=== PATIENT | female | born 1970 | race Caucasian/White ===

== ENCOUNTER 2017-12-27 06:40 | Emergency (ER) | payer BC ==
[~2017-12-27] VITALS: Ht 160 cm; Wt 59.9 kg
[2017-12-27 07:52] LABS: Urine Bacteria NONE SEEN /hpf (None Seen); Urine Blood Negative /uL (Negative); Urine Mucus FEW (None Seen); Urine Specific Gravity 1.022 (1.001-1.035); Urine WBC 3 /hpf (0 - 5)
[2017-12-27 08:07] LABS: Basophils # (auto) 0 uL; Basophils % (auto) 0.4 % (0.0-2.0); Eosinophils # (auto) 0.1 uL; Eosinophils % (auto) 0.7 % (0.0-7.0); Hemoglobin 14.1 g/dL (12.2-16.2); Mean Corpuscular Hemoglobin 29.4 pg (28.0-32.0); Mean Corpuscular Hgb Conc. 33.7 g/dL (32.0-36.0); Mean Corpuscular Volume 87.3 fL (80.0-100.0); Monocytes # (auto) 0.4 uL; Monocytes % (auto) 4.1 % (0.0-12.0); Neutrophils # (auto) 7.1 uL; Neutrophils % (auto) 82.8 % (37.0-80.0); Nucleated Red Blood Cells % 0.1 %; Platelet Count (auto) 217 10^3/uL (140-450); Red Blood Cells 4.81 10^6/uL (4.0-5.20); White Blood Cell 8.6 10^3/uL (4.4-10.8)
[2017-12-27 08:24] LABS: Albumin 4.1 g/dL (3.4-5.0); BUN/Creatinine Ratio 14.9; Bilirubin, Total 0.4 mg/dL (0.2-1.0); Calcium 8.6 mg/dL (8.5-10.1); Potassium 4.2 mmol/L (3.5-5.1); Total Protein 7.5 g/dL (6.4-8.2)
[2017-12-27 09:22] VITALS: BP 111/70
[2017-12-27] MEDS ORDERED: KETOROLAC TROMETH 60MG/2ML VIAL IM ONE (10:30)
== END 2017-12-27 11:09 | disposition home or self-care (01) ==
LOC: ER 06:41
DX: K57.30 Diverticulosis of large intestine without perforation or abscess without bleeding (principal); F17.210 Nicotine dependence, cigarettes, uncomplicated
CPT/HCPCS: 36415; 74176; 80053; 81001; 85025; 96372; 99285; J1885

== ENCOUNTER → 2017-12-31 | Outpatient (CLI) | payer BC ==
[2017-12-31 09:03] LABS: Basophils # (auto) 0 uL; Basophils % (auto) 0.8 % (0.0-2.0); Eosinophils # (auto) 0.1 uL; Hematocrit 42.5 % (36.0-46.0); Hemoglobin 14.1 g/dL (12.2-16.2); Lymphocytes # (auto) 1.8 uL; Lymphocytes % (auto) 31.9 % (10.0-50.0); Mean Corpuscular Hemoglobin 29.3 pg (28.0-32.0); Mean Corpuscular Hgb Conc. 33.1 g/dL (32.0-36.0); Mean Corpuscular Volume 88.5 fL (80.0-100.0); Monocytes # (auto) 0.3 uL; Monocytes % (auto) 5.7 % (0.0-12.0); Neutrophils # (auto) 3.4 uL; Neutrophils % (auto) 59.6 % (37.0-80.0); Platelet Count (auto) 209 10^3/uL (140-450); Red Cell Distribution Width 13.2 % (11.8-14.3); White Blood Cell 5.7 10^3/uL (4.4-10.8)
[2017-12-31 09:36] LABS: Albumin 3.7 g/dL (3.4-5.0); BUN/Creatinine Ratio 15.2; Bilirubin, Total 0.4 mg/dL (0.2-1.0); Calcium 8.6 mg/dL (8.5-10.1); Potassium 4.6 mmol/L (3.5-5.1)
== END | disposition home or self-care (01) ==
LOC: LAB 07:56
PROVIDERS: ATTEND Physician Assistant
DX: Z00.01 Encounter for general adult medical examination with abnormal findings (principal); N28.1 Cyst of kidney, acquired; R10.84 Generalized abdominal pain; N83.209 Unspecified ovarian cyst, unspecified side; F17.210 Nicotine dependence, cigarettes, uncomplicated
CPT/HCPCS: 36415; 80053; 80061; 85025

== ENCOUNTER 2018-10-23 06:02 | Inpatient (IN) | payer BC ==
[2018-10-21 11:23] LABS: Basophils # (auto) 0 uL; Basophils % (auto) 0.8 % (0.0-2.0); Eosinophils # (auto) 0.1 uL; Eosinophils % (auto) 1.4 % (0.0-7.0); Hematocrit 43.4 % (36.0-46.0); Hemoglobin 14.4 g/dL (12.2-16.2); Lymphocytes # (auto) 1.3 uL; Lymphocytes % (auto) 25.7 % (10.0-50.0); Mean Corpuscular Hemoglobin 29.8 pg (28.0-32.0); Mean Corpuscular Hgb Conc. 33.3 g/dL (32.0-36.0); Mean Corpuscular Volume 89.5 fL (80.0-100.0); Monocytes # (auto) 0.3 uL; Monocytes % (auto) 4.9 % (0.0-12.0); Neutrophils # (auto) 3.5 uL; Neutrophils % (auto) 67.2 % (37.0-80.0); Nucleated Red Blood Cells % 0.1 %; Platelet Count (auto) 185 10^3/uL (140-450); Red Blood Cells 4.85 10^6/uL (4.0-5.20); Red Cell Distribution Width 12.8 % (11.8-14.3); White Blood Cell 5.2 10^3/uL (4.4-10.8)
[2018-10-21 11:31] LABS: Urine Bacteria NONE SEEN /hpf (None Seen); Urine Blood Negative /uL (Negative); Urine Specific Gravity 1.016 (1.001-1.035); Urine WBC 1 /hpf (0 - 5)
[2018-10-21 11:35] LABS: INR 0.93 (0.9-1.15); Partial Thromboplastin Time 26.1 sec (23.78-33.04)
[2018-10-21 11:41] LABS: Calcium 8.3 mg/dL (8.5-10.1); Potassium 4.3 mmol/L (3.5-5.1)
[2018-10-21 11:47] LABS: BUN/Creatinine Ratio 14.6; Bilirubin, Total 0.4 mg/dL (0.2-1.0); Total Protein 7.6 g/dL (6.4-8.2)
[~2018-10-23] VITALS: Ht 160 cm; Wt 65.3 kg
[~2018-10-23 06:02] MED LIST: BUPR100T14 PO
[2018-10-23] MEDS ORDERED: DOXAPRAM HCL 20 MG/ML 20ML VIAL INJ IV ONE (06:53)
[2018-10-23] MEDS ORDERED: SUCCINYLCHOLINE CHLORIDE 20 MG/ML 10ML VIAL IV ONE (06:54)
[2018-10-23] MEDS ORDERED: ceFAZolin 1GM/50ML 50 ML IV ONE (07:04)
[2018-10-23] MEDS ORDERED: ACETAMINOPHEN IV 100 ML IV ONE (07:05)
[2018-10-23] MEDS ORDERED: SODIUM CHLORIDE LOCK 10 ML ONE (07:08)
[2018-10-23] MEDS ORDERED: fentaNYL CITRATE 100 MCG/2 ML VL ONE (07:08)
[2018-10-23] MEDS ORDERED: ONDANSETRON HCL 4 MG/2 ML VIAL ONE (07:08)
[2018-10-23] MEDS ORDERED: PROPOFOL 10 MG/ML 20 ML IV ONE (07:08)
[2018-10-23] MEDS ORDERED: MIDAZOLAM HCL 1MG/1ML-2 ML VIAL ONE (07:08)
[2018-10-23] MEDS ORDERED: HYDROmorphone HCL 2 MG/ML VL ONE (07:08)
[2018-10-23] MEDS ORDERED: fentaNYL CITRATE 10 ML ONE (07:08)
[2018-10-23] MEDS ORDERED: ROCURONIUM 10MG/ML 10ML VIAL IV ONE (07:08)
[2018-10-23] MEDS ORDERED: KETOROLAC TROMETH 60MG/2ML VIAL IM ONE (07:58)
[2018-10-23] MEDS ORDERED: GLYCOPYRROLATE 0.2 MG/ML 1ML VIAL ONE (07:58)
[2018-10-23] MEDS ORDERED: NEOSTIGMINE 1 MG/ML INJ (10mg/10ML VIAL) ONE (07:58)
[2018-10-23] MEDS ORDERED: METOCLOPRAMIDE HCL 5MG/ml INJ 2ml VIAL IV ONE (08:15)
[2018-10-23] MEDS ORDERED: KETOROLAC TROMETH 30 MG/ML 1ML VIAL IV ONE (08:15)
[2018-10-23] MEDS ORDERED: ONDANSETRON HCL 4 MG/2 ML VIAL IV PRN (09:15)
[2018-10-23] MEDS: HYDROmorphone HCL 2 MG/ML VL IV PRN ×5 (09:35→17:49)
[2018-10-23] MEDS: ceFAZolin 1GM/50ML 50 ML IV SCH ×2 (15:54→23:59)
[2018-10-23 16:10] VITALS: BP 109/69
[2018-10-23 17:04] VITALS: BP 109/69
[2018-10-23] MEDS: LACTATED RINGER'S 1,000 ML IV SCH ×3 (17:05→23:00)
[2018-10-23] MEDS: KETOROLAC TROMETH 30 MG/ML 1ML VIAL IV SCH ×3 (18:00→23:59)
[2018-10-23] MEDS: buPROPion HCL 100 MG TAB PO SCH (21:06)
[2018-10-23 21:12] VITALS: BP 107/61
[2018-10-24] MEDS: HYDROmorphone HCL 2 MG/ML VL IV PRN (04:42)
[2018-10-24 05:09] VITALS: BP 98/62
[2018-10-24 05:54] LABS: Basophils # (auto) 0 uL; Basophils % (auto) 0.4 % (0.0-2.0); Eosinophils # (auto) 0 uL; Eosinophils % (auto) 0.4 % (0.0-7.0); Hematocrit 35.7 % (36.0-46.0); Hemoglobin 12.1 g/dL (12.2-16.2); Lymphocytes # (auto) 1.6 uL; Lymphocytes % (auto) 16.7 % (10.0-50.0); Mean Corpuscular Hemoglobin 29.9 pg (28.0-32.0); Mean Corpuscular Hgb Conc. 33.7 g/dL (32.0-36.0); Mean Corpuscular Volume 88.7 fL (80.0-100.0); Monocytes # (auto) 0.5 uL; Monocytes % (auto) 5.7 % (0.0-12.0); Neutrophils # (auto) 7.3 uL; Neutrophils % (auto) 76.8 % (37.0-80.0); Platelet Count (auto) 167 10^3/uL (140-450); Red Blood Cells 4.03 10^6/uL (4.0-5.20); Red Cell Distribution Width 12.4 % (11.8-14.3); White Blood Cell 9.5 10^3/uL (4.4-10.8)
[2018-10-24 06:05] LABS: Calcium 7.8 mg/dL (8.5-10.1); Potassium 3.7 mmol/L (3.5-5.1)
[2018-10-24 06:11] LABS: Bilirubin, Total 0.6 mg/dL (0.2-1.0); Total Protein 5.8 g/dL (6.4-8.2)
[2018-10-24] MEDS: KETOROLAC TROMETH 30 MG/ML 1ML VIAL IV SCH ×4 (06:12→23:39)
[2018-10-24] MEDS: buPROPion HCL 100 MG TAB PO SCH ×2 (06:12→18:28)
[2018-10-24] MEDS: ceFAZolin 1GM/50ML 50 ML IV SCH (06:12)
--- NOTE | 2018-10-24 07:16 | NUR ---
Shift Note The patient had a pretty good night, tolerated treatments well. She seemed not to sleep much, waking easily when I would come into the room. She tolerated her clear liquid diet well, wants more. I told her when the doctor sees she is tolerating clears well, she may be advanced in her diet. The abdominal dressing remains clean, dry, and intact. The scheduled Toradol had kept her pain around a 5/10 most of the shift. Performed patient teaching with the incentive spirometer. The patient also knows the flores will come out this morning. Will continue to monitor.
[2018-10-24 08:00] VITALS: BP 99/65
--- NOTE | 2018-10-24 08:00 | NUR ---
Opening Shift Note Assumed care of patient, alert and oriented x4. No S/S of distress/SOB. Surgical incision dressing is clean, dry and intact. Iv in right forearm 20 g is patent, dry, and clean running lactated ringers @ 125. Bed in lowest position and call light is within reach.Instructed on POC and to call for assist PRN, will continue to monitor for changes.
[2018-10-24] MEDS ORDERED: LACTATED RINGER'S 1,000 ML IV SCH (08:20)
[2018-10-24] MEDS ORDERED: IBUPROFEN 800 MG TAB PO PRN (08:30)
[2018-10-24] MEDS ORDERED: HYDROcodone-ACET 5/325MG TAB PO PRN ×2 (08:30)
[2018-10-24] MEDS ORDERED: SIMETHICONE 80 MG CHEWABLE TABLET PO PRN (08:30)
[2018-10-24 08:50] VITALS: BP 99/65
--- NOTE | 2018-10-24 09:32 | NUR ---
D/c Hernández Hernández was d/c. Patient had no signs or symptoms of distress.
[2018-10-24] MEDS: DOCUSATE SOD 100 MG CAP PO SCH ×2 (10:51→22:48)
[2018-10-24] MEDS: LACTATED RINGER'S 1,000 ML IV SCH ×3 (10:58→23:40)
[2018-10-24 11:50] VITALS: BP 107/69
--- NOTE | 2018-10-24 11:56 | NUR ---
Patient notes: Patient ambulated to the restroom. gait is stable. No signs of distress. Patient states no flatus. Dressing removed from surgical incision as direct by . Wound well approximated, nery intact, no swelling or redness noted. Minimal bleeding on left side of incision. New dressing was applied abdominal pad with adhesive. Patient ambulated the [facility] with family by there side. no complaint of pain.
--- NOTE | 2018-10-24 12:55 | NUR ---
Patient's notes: Patient is currently eating lunch with family member bedside. patient is tolerating full liquid diet and states no nausea or vomiting. Patient states she has flatus in the last hour and ambulates independently to the restroom. Pain is currently tolerable level of 4. patient is told to call for assistance and call light is within reach.
[2018-10-24 17:08] VITALS: BP 112/58
--- NOTE | 2018-10-24 18:40 | NUR ---
PT NOTES PT RESTING IN BED. VERBALIZED COMFORT. PT REQUESTED FOR A SOFT DIET FOR DINNER. PER MD, ADVANCE DIET TOLERATED.
[2018-10-24 22:00] VITALS: BP 107/61
[2018-10-25 05:00] VITALS: BP 107/67
[2018-10-25] MEDS: buPROPion HCL 100 MG TAB PO SCH ×2 (06:32→19:12)
[2018-10-25] MEDS: KETOROLAC TROMETH 30 MG/ML 1ML VIAL IV SCH ×3 (06:33→17:33)
--- NOTE | 2018-10-25 07:20 | NUR ---
Opening Shift Note Assumed care of patient, awake and alert. No S/S of distress/SOB or pain. Instructed on POC-continue using incentive spirometer for breathing exercises, continue hydration, monitor incision. Patient informed to call for assist PRN, will continue to monitor for changes Q1hr and PRN.
[2018-10-25 08:38] VITALS: BP 115/65
[2018-10-25] MEDS: LACTATED RINGER'S 1,000 ML IV SCH (09:25)
[2018-10-25] MEDS: DOCUSATE SOD 100 MG CAP PO SCH ×2 (10:50→22:22)
[2018-10-25 13:00] VITALS: BP 123/81
[2018-10-25 17:00] VITALS: BP 114/74
--- NOTE | 2018-10-25 19:00 | NUR ---
Closing Note Patient is resting in bed, per patient she had a bowel movement. Call light within reach and bed in lowest position. Care endorsed to night RN.
[2018-10-25 22:00] VITALS: BP 98/49
[2018-10-26] MEDS: KETOROLAC TROMETH 30 MG/ML 1ML VIAL IV SCH ×2 (00:31→06:16)
[2018-10-26 05:00] VITALS: BP 101/63
--- NOTE | 2018-10-26 05:23 | NUR ---
Shift Note The patient had an uneventful night, tolerated treatments well, had no complaints. She was able to sleep most of the night, pain seemed managed at around 4/10. She continues to receive Toradol Q6. Plan is to have her nery removed and possibly discharged later today. Will continue to monitor.
[2018-10-26] MEDS: buPROPion HCL 100 MG TAB PO SCH (06:15)
--- NOTE | 2018-10-26 08:00 | NUR ---
Opening Shift Note Assumed care of patient, awake and alert. No S/S of distress/SOB or pain. Denies needing anything at this time. Stated she is just waiting for Dr. Briggs to remove the nery so she can hopefully go home today. Instructed on POC and to call for assist PRN, will continue to monitor for changes Q1hr and PRN.
[2018-10-26 08:59] VITALS: BP 93/68
[2018-10-26] MEDS: DOCUSATE SOD 100 MG CAP PO SCH (09:05)
[2018-10-26] MEDS ORDERED: CEPH250C PO (11:27)
[2018-10-26] MEDS ORDERED: DOCU-94 PO (11:27)
[2018-10-26] MEDS ORDERED: HYDR-4683 PO (11:27)
--- NOTE | 2018-10-26 13:23 | NUR ---
DISCHARGE REVIEWED DISCHARGE INFORMATION WITH PATIENT. ANSWERED QUESTIONS. REMOVED IV AND ARMBANDS. PATIENT WAS DISCHARGED HOME WITH ALL BELONGINGS. FAMILY PRESENT. MD RUIZ WAS HERE THIS MORNING AND REMOVED HER ABDOMINAL KRISTINE AND COVERED ARE WITH DRESSING. DRESSING CURRENTLY CLEAN, DRY, AND INTACT.
== END 2018-10-26 13:20 | disposition home or self-care (01) | DRG 743 ==
LOC: SUR 06:02 → EAST 16:30
PROVIDERS: ADMIT Specialist; ATTEND Specialist
PROC: 0UT70ZZ Resection of Bilateral Fallopian Tubes, Open Approach (ICD-10-PCS; 2018-10-23)
PROC: 0UT90ZZ Resection of Uterus, Open Approach (ICD-10-PCS; principal; 2018-10-23 07:29)
DX: D25.9 Leiomyoma of uterus, unspecified (principal); F17.210 Nicotine dependence, cigarettes, uncomplicated; G47.00 Insomnia, unspecified; F32.9 Major depressive disorder, single episode, unspecified; G89.29 Other chronic pain; K66.0 Peritoneal adhesions (postprocedural) (postinfection); Z80.49 Family history of malignant neoplasm of other genital organs; Z98.891 History of uterine scar from previous surgery; Z98.51 Tubal ligation status
CPT/HCPCS: 36415; 80053; 81001; 84702; 85025; 85610; 85730; 86850; 86900; 86901; G0378; J0131; J0330; J0690; J1885; J2250; J2405; J2704

== ENCOUNTER → 2019-02-28 | Outpatient (CLI) | payer BC ==
[~2019-02-28] MED LIST changes: +CEPH250C PO; +DOCU-94 PO; +HYDR-4683 PO
[2019-02-28 08:30] LABS: Basophils # (auto) 0 uL; Basophils % (auto) 0.9 % (0.0-2.0); Eosinophils # (auto) 0.1 uL; Eosinophils % (auto) 1.7 % (0.0-7.0); Hematocrit 38.4 % (36.0-46.0); Hemoglobin 12.9 g/dL (12.2-16.2); Lymphocytes # (auto) 1.3 uL; Lymphocytes % (auto) 29.1 % (10.0-50.0); Mean Corpuscular Hemoglobin 29.4 pg (28.0-32.0); Mean Corpuscular Hgb Conc. 33.5 g/dL (32.0-36.0); Mean Corpuscular Volume 87.6 fL (80.0-100.0); Monocytes # (auto) 0.3 uL; Monocytes % (auto) 6.2 % (0.0-12.0); Neutrophils # (auto) 2.8 uL; Neutrophils % (auto) 62.1 % (37.0-80.0); Nucleated Red Blood Cells % 0.1 %; Platelet Count (auto) 181 10^3/uL (140-450); Red Blood Cells 4.38 10^6/uL (4.0-5.20); White Blood Cell 4.5 10^3/uL (4.4-10.8)
[2019-02-28 08:32] LABS: Potassium 4.2 mmol/L (3.5-5.1)
[2019-02-28 08:41] LABS: Albumin 3.7 g/dL (3.4-5.0); Bilirubin, Total 0.6 mg/dL (0.2-1.0); Calcium 8.5 mg/dL (8.5-10.1); Total Protein 6.8 g/dL (6.4-8.2)
== END | disposition home or self-care (01) ==
LOC: LAB 07:31
PROVIDERS: ATTEND Physician Assistant
DX: F41.9 Anxiety disorder, unspecified (principal); G47.00 Insomnia, unspecified; Z20.5 Contact with and (suspected) exposure to viral hepatitis; Z72.0 Tobacco use
CPT/HCPCS: 36415; 80053; 80061; 85025; 87522

== ENCOUNTER 2019-06-29 11:26 | Emergency (ER) | payer BC ==
[~2019-06-29] VITALS: Ht 157.5 cm; Wt 61.2 kg
[~2019-06-29 11:26] MED LIST changes: -HYDR-4683 PO; +HYDR-4833 PO
[2019-06-29] MEDS ORDERED: IBUPROFEN 800 MG TAB PO ONE (13:45)
[2019-06-29 14:40] VITALS: BP 118/68
== END 2019-06-29 15:00 | disposition home or self-care (01) ==
LOC: ER 11:26
DX: S63.501A Unspecified sprain of right wrist, initial encounter (principal); M54.2 Cervicalgia; M25.511 Pain in right shoulder; V89.2XXA Person injured in unspecified motor-vehicle accident, traffic, initial encounter; Y93.I9 Activity, other involving external motion; Y92.410 Unspecified street and highway as the place of occurrence of the external cause; Y99.8 Other external cause status
CPT/HCPCS: 73110

== ENCOUNTER → 2020-07-28 | Outpatient (CLI) | payer BC ==
[2020-07-28 08:14] LABS: Basophils # (auto) 0.1 10 ^3/uL (0-0.2); Eosinophils # (auto) 0.1 10 ^3/uL (0-0.8); Eosinophils % (auto) 1.6 % (0.0-7.0); Hematocrit 41.1 % (36.0-46.0); Hemoglobin 13.5 g/dL (12.2-16.2); Lymphocytes # (auto) 1.5 10 ^3/uL (0.4-5.4); Mean Corpuscular Hemoglobin 28.5 pg (28.0-32.0); Mean Corpuscular Hgb Conc. 32.9 g/dL (32.0-36.0); Mean Corpuscular Volume 86.8 fL (80.0-100.0); Monocytes # (auto) 0.4 10 ^3/uL (0-1.3); Monocytes % (auto) 7.1 % (0.0-12.0); Neutrophils # (auto) 3.5 10 ^3/uL (1.6-8.6); Neutrophils % (auto) 63.3 % (37.0-80.0); Nucleated Red Blood Cells % 0.4 %; Platelet Count (auto) 206 10^3/uL (140-450); Red Blood Cells 4.74 10^6/uL (4.0-5.20); Red Cell Distribution Width 12.8 % (11.8-14.3); White Blood Cell 5.5 10^3/uL (4.4-10.8)
[2020-07-28 08:39] LABS: Albumin 3.6 g/dL (3.4-5.0); Calcium 8.7 mg/dL (8.5-10.1); Potassium 4.1 mmol/L (3.5-5.1)
[2020-07-28 08:44] LABS: BUN/Creatinine Ratio 13.5; Bilirubin, Total 0.7 mg/dL (0.2-1.0); Total Protein 7.2 g/dL (6.4-8.2)
== END | disposition home or self-care (01) ==
LOC: LAB 07:57
PROVIDERS: ATTEND Physician Assistant
DX: G43.019 Migraine without aura, intractable, without status migrainosus (principal); G47.00 Insomnia, unspecified; F41.9 Anxiety disorder, unspecified; M54.2 Cervicalgia
CPT/HCPCS: 36415; 80053; 80061; 85025

== ENCOUNTER → 2020-12-31 | Day surgery (SDC) | payer BC ==
[2020-12-28 14:18] LABS: Basophils # (auto) 0.1 10 ^3/uL (0-0.2); Basophils % (auto) 0.7 % (0.0-2.0); Eosinophils # (auto) 0.1 10 ^3/uL (0-0.8); Eosinophils % (auto) 1.7 % (0.0-7.0); Hematocrit 41.7 % (36.0-46.0); Hemoglobin 14.2 g/dL (12.2-16.2); Lymphocytes # (auto) 1.9 10 ^3/uL (0.4-5.4); Lymphocytes % (auto) 26.6 % (10.0-50.0); Mean Corpuscular Hemoglobin 29.3 pg (28.0-32.0); Monocytes # (auto) 0.5 10 ^3/uL (0-1.3); Monocytes % (auto) 7.2 % (0.0-12.0); Neutrophils # (auto) 4.6 10 ^3/uL (1.6-8.6); Neutrophils % (auto) 63.8 % (37.0-80.0); Nucleated Red Blood Cells % 0.1 %; Platelet Count (auto) 225 10^3/uL (140-450); Red Blood Cells 4.85 10^6/uL (4.0-5.20); Red Cell Distribution Width 12.9 % (11.8-14.3); White Blood Cell 7.2 10^3/uL (4.4-10.8)
[2020-12-28 14:37] LABS: INR 0.93 (0.9-1.15); Partial Thromboplastin Time 25.3 sec (23.0-31.2)
[~2020-12-31] VITALS: Ht 157.5 cm; Wt 59.0 kg
[~2020-12-31] MED LIST changes: -CEPH250C PO; -DOCU-94 PO; -HYDR-4833 PO; +SODIUM CHLORIDE LOCK 10 ML ONE; +fentaNYL CITRATE 100 MCG/2 ML VL ONE
[2020-12-31] MEDS: MIDAZOLAM HCL 5 MG/ML-1ML VIAL ONE ×3 (12:19→12:25)
[2020-12-31] MEDS: diphenhdrAMINE HCL 50 MG/1 ML VL ONE ×2 (12:19→12:25)
[2020-12-31] MEDS: fentaNYL CITRATE 100 MCG/2 ML VL ONE ×3 (12:19→12:25)
[2020-12-31 13:25] VITALS: BP 96/51
== END | disposition home or self-care (01) ==
LOC: GI 10:42
PROVIDERS: ATTEND Internal Medicine Gastroenterology
DX: Z12.11 Encounter for screening for malignant neoplasm of colon (principal); K57.30 Diverticulosis of large intestine without perforation or abscess without bleeding; K64.1 Second degree hemorrhoids; D21.9 Benign neoplasm of connective and other soft tissue, unspecified; Z98.890 Other specified postprocedural states; Z79.899 Other long term (current) drug therapy; Z98.51 Tubal ligation status
CPT/HCPCS: 36415; 45378; 85025; 85610; 85730; J1200; J2250; J3010; J7030; U0003; 99152

== ENCOUNTER → 2022-12-25 | Outpatient (CLI) | payer BC ==
[~2022-12-25] MED LIST changes: +BUPR-160 PO; -BUPR100T14 PO; -SODIUM CHLORIDE LOCK 10 ML ONE; -fentaNYL CITRATE 100 MCG/2 ML VL ONE
[2022-12-25 07:36] LABS: Basophils # (auto) 0 10 ^3/uL (0-0.2); Basophils % (auto) 0.6 % (0.0-2.0); Eosinophils # (auto) 0.1 10 ^3/uL (0-0.8); Eosinophils % (auto) 2.2 % (0.0-7.0); Hematocrit 32.9 % (36.0-46.0); Hemoglobin 11.3 g/dL (12.2-16.2); Lymphocytes # (auto) 1.8 10 ^3/uL (0.4-5.4); Lymphocytes % (auto) 31.3 % (10.0-50.0); Mean Corpuscular Hgb Conc. 34.5 g/dL (32.0-36.0); Monocytes # (auto) 0.4 10 ^3/uL (0-1.3); Monocytes % (auto) 6.2 % (0.0-12.0); Neutrophils # (auto) 3.5 10 ^3/uL (1.6-8.6); Neutrophils % (auto) 59.7 % (37.0-80.0); Nucleated Red Blood Cells % 0.1 %; Red Blood Cells 3.78 10^6/uL (4.0-5.20); Red Cell Distribution Width 13.7 % (11.8-14.3); White Blood Cell 5.8 10^3/uL (4.4-10.8)
[2022-12-25 08:31] LABS: Albumin 3.2 g/dL (3.4-5.0); Calcium 8.6 mg/dL (8.5-10.1); Potassium 3.8 mmol/L (3.5-5.1)
[2022-12-25 08:36] LABS: BUN/Creatinine Ratio 15.1 (10.0-20.0); Bilirubin, Total 0.3 mg/dL (0.2-1.0); Total Protein 6.4 g/dL (6.4-8.2)
== END | disposition home or self-care (01) ==
LOC: LAB 06:37
PROVIDERS: ATTEND Nurse Practitioner Family
DX: G43.019 Migraine without aura, intractable, without status migrainosus (principal); F41.9 Anxiety disorder, unspecified
CPT/HCPCS: 36415; 80053; 80061; 84439; 84443; 85025

== ENCOUNTER → 2023-01-15 | Emergency (ER) | payer BC ==
[~2023-01-15] MED LIST changes: +CYCL-839 PO; +IBUP600T28 PO; +LIDO5PAD8 EX
== END | disposition left against medical advice (07) ==
LOC: ER 19:27
DX: M25.559 Pain in unspecified hip (principal); Z53.21 Procedure and treatment not carried out due to patient leaving prior to being seen by health care provider

== ENCOUNTER 2023-01-16 06:39 | Emergency (ER) | payer BC ==
[~2023-01-16] VITALS: Ht 160 cm; Wt 67.2 kg
[~2023-01-16 06:39] MED LIST changes: -CYCL-839 PO; -IBUP600T28 PO; -LIDO5PAD8 EX
[2023-01-16 07:20] VITALS: BP 113/67
[2023-01-16] MEDS ORDERED: KETOROLAC TROMETH 30 MG/ML 1ML VIAL IM ONE (08:00)
[2023-01-16] MEDS ORDERED: IBUP600T28 PO (08:52)
[2023-01-16] MEDS ORDERED: LIDO5PAD8 EX (08:52)
[2023-01-16] MEDS ORDERED: CYCL-839 PO (08:52)
== END 2023-01-16 09:04 | disposition home or self-care (01) ==
LOC: ER 06:39
DX: S39.011A Strain of muscle, fascia and tendon of abdomen, initial encounter (principal); M54.32 Sciatica, left side; F41.9 Anxiety disorder, unspecified; F17.210 Nicotine dependence, cigarettes, uncomplicated; Z79.899 Other long term (current) drug therapy; X58.XXXA Exposure to other specified factors, initial encounter; Y99.8 Other external cause status; Y93.89 Activity, other specified; Y92.89 Other specified places as the place of occurrence of the external cause
CPT/HCPCS: 72100; 73502; 96372; 99284; J1885

== ENCOUNTER → 2023-09-04 | Outpatient (CLI) | payer BC ==
[~2023-09-04] MED LIST changes: -BUPR-160 PO; +BUPR-346 PO; +CYCL-839 PO; +IBUP1TAB5 PO; +LIDO5PAD8 EX
[2023-09-04 09:07] LABS: Basophils # (auto) 0 10 ^3/uL (0-0.2); Basophils % (auto) 0.9 % (0.0-2.0); Eosinophils # (auto) 0 10 ^3/uL (0-0.8); Hematocrit 38.5 % (36.0-46.0); Hemoglobin 12.7 g/dL (12.2-16.2); Lymphocytes # (auto) 0.7 10 ^3/uL (0.4-5.4); Lymphocytes % (auto) 14.9 % (10.0-50.0); Mean Corpuscular Hemoglobin 28.4 pg (28.0-32.0); Mean Corpuscular Hgb Conc. 33.1 g/dL (32.0-36.0); Mean Corpuscular Volume 85.9 fL (80.0-100.0); Monocytes # (auto) 0.4 10 ^3/uL (0-1.3); Monocytes % (auto) 8.6 % (0.0-12.0); Neutrophils # (auto) 3.7 10 ^3/uL (1.6-8.6); Neutrophils % (auto) 74.6 % (37.0-80.0); Nucleated Red Blood Cells % 0.1 %; Red Blood Cells 4.48 10^6/uL (4.0-5.20); Red Cell Distribution Width 12.7 % (11.8-14.3)
[2023-09-04 09:46] LABS: Alanine Aminotransferase 20 U/L (7-40); Albumin 4.4 g/dL (3.2-4.8); Alkaline Phosphatase 57 U/L (46-116); Anion Gap 7 (5-15); Aspartate Aminotransferase 16 U/L (13-40); Calcium 9.1 mg/dL (8.5-10.1); Carbon Dioxide 26 mmol/L (20-30); Chloride 105 mmol/L (98-107); Glucose 120 mg/dL (74-106); Potassium 4.3 mmol/L (3.5-5.1); Sodium 138 mmol/L (136-145)
[2023-09-04 09:47] LABS: BUN/Creatinine Ratio 9.5 (10.0-20.0); Blood Urea Nitrogen 10 mg/dL (9-23); Cholesterol 169 mg/dL (< 200); Triglycerides 113 mg/dL (< 150)
[2023-09-04 09:48] LABS: LDL Cholesterol 90 mg/dL (< 100)
[2023-09-04 09:49] LABS: Bilirubin, Total 0.3 mg/dL (0.2-1.0); HDL Cholesterol 63 mg/dL (40-59); Total Protein 6.9 g/dL (5.7-8.2)
== END | disposition home or self-care (01) ==
LOC: LAB 08:47
PROVIDERS: ATTEND Nurse Practitioner Family
DX: E78.00 Pure hypercholesterolemia, unspecified (principal); F41.9 Anxiety disorder, unspecified
CPT/HCPCS: 36415; 80053; 80061; 84439; 84443; 85025

== ENCOUNTER → 2023-10-17 | Outpatient (CLI) | payer BC ==
[2023-10-17 15:45] LABS: Basophils # (auto) 0.1 10 ^3/uL (0-0.2); Eosinophils # (auto) 0.2 10 ^3/uL (0-0.8); Eosinophils % (auto) 2.9 % (0.0-7.0); Hematocrit 36.6 % (36.0-46.0); Hemoglobin 12.3 g/dL (12.2-16.2); Lymphocytes % (auto) 37.3 % (10.0-50.0); Mean Corpuscular Hemoglobin 28.7 pg (28.0-32.0); Mean Corpuscular Hgb Conc. 33.6 g/dL (32.0-36.0); Mean Corpuscular Volume 85.4 fL (80.0-100.0); Monocytes # (auto) 0.4 10 ^3/uL (0-1.3); Monocytes % (auto) 7.7 % (0.0-12.0); Neutrophils # (auto) 2.7 10 ^3/uL (1.6-8.6); Neutrophils % (auto) 51.1 % (37.0-80.0); Nucleated Red Blood Cells % 0.1 %; Red Blood Cells 4.29 10^6/uL (4.0-5.20); Red Cell Distribution Width 13.7 % (11.8-14.3); White Blood Cell 5.3 10^3/uL (4.4-10.8)
[2023-10-17 16:01] LABS: INR 0.96 (0.9-1.15); Prothrombin Time 10.1 sec (9.3-11.8)
[2023-10-17 16:18] LABS: Chloride 104 mmol/L (98-107); Potassium 4.6 mmol/L (3.5-5.1); Sodium 140 mmol/L (136-145)
[2023-10-17 16:19] LABS: Anion Gap 7 (5-15); Carbon Dioxide 29 mmol/L (20-30)
[2023-10-17 16:20] LABS: Calcium 9.6 mg/dL (8.5-10.1)
[2023-10-17 16:24] LABS: BUN/Creatinine Ratio 12.9 (10.0-20.0); Blood Urea Nitrogen 13 mg/dL (9-23); Glucose 97 mg/dL (74-106)
[2023-10-17 17:50] LABS: Urine Bacteria FEW /hpf (None Seen); Urine Blood Negative /uL (Negative); Urine Clarity Clear (Clear); Urine Color Colorless (Yellow); Urine Protein, UAD Negative (Negative); Urine Specific Gravity 1.007 (1.001-1.035); Urine Urobilinogen Normal (Negative); Urine WBC 5 /hpf (0 - 5)
== END | disposition home or self-care (01) ==
LOC: LAB 15:28
PROVIDERS: ATTEND Anesthesiology Pain Medicine
DX: R79.1 Abnormal coagulation profile (principal); Z79.01 Long term (current) use of anticoagulants
CPT/HCPCS: 36415; 80048; 81001; 81025; 85025; 85610; 85730

== ENCOUNTER → 2023-10-30 | Outpatient (CLI) | payer BC ==
[2023-10-30 12:54] LABS: Free T4 (Free Thyroxine) 1.11 ng/dL (0.89-1.76); Leuteinizing Hormone 40.1 IU/L
[2023-10-31 08:06] LABS: Estradiol <5.0 pg/mL (.)
== END | disposition home or self-care (01) ==
LOC: LAB 11:45
DX: N95.1 Menopausal and female climacteric states (principal)
CPT/HCPCS: 36415; 82670; 82672; 83002; 84403; 84439; 84443

== ENCOUNTER → 2024-01-21 | Outpatient (CLI) | payer BC ==
[~2024-01-21] MED LIST changes: +LIDO5PAD12 EX; -LIDO5PAD8 EX
[2024-01-21 16:46] LABS: Leuteinizing Hormone 7.8 IU/L
[2024-01-21 17:33] LABS: Free T4 (Free Thyroxine) 1.11 ng/dL (0.89-1.76)
== END | disposition home or self-care (01) ==
LOC: LAB 15:43
DX: N95.1 Menopausal and female climacteric states (principal); F41.9 Anxiety disorder, unspecified
CPT/HCPCS: 36415; 82670; 82672; 83002; 84403; 84439; 84443

== ENCOUNTER 2024-09-05 18:22 | Inpatient (IN) | payer BC ==
[~2024-09-05] VITALS: Ht 157.5 cm; Wt 75.5 kg
--- NOTE | 2024-09-05 18:49 | ED.PDOC ---
GI ASSESSMENT HPI Comments 53 year old female transferred from urgent care due to chest pains/ upper abdominal pain. Patient denies any medical problems. States since 9am today, she has been having epigastric pain/ midsternal pain described as pressure and radiating to the back and worsens with deep breathing. Patient self medicated with antacids feeling it was heartburn but this offered no relief. No nausea or vomiting noted. Chief Complaint: Chest Pain Time Seen by MD: 18:48 Primary Care Provider: REINALDO Chatterjee Notes: Nurses Notes Allergies: Coded Allergies: NO KNOWN ALLERGIES (Unverified , 12/28/20) Home Meds Active Scripts Lidocaine (Lidocaine Patch 5%) 5 % Pad, 1 APPLIC EX DAILY PRN, #30 PATCH 0 Refills Prov:LEONOR CALDERÓN [facility] 01/16/23 Ibuprofen Micronized (Ibuprofen) 600 Mg Tab, 600 MG PO Q8HPRN PRN, #30 TAB 0 Refills Prov:CALDERÓN,LEONOR M [facility] 01/16/23 Cyclobenzaprine Hcl (Cyclobenzaprine Hcl) 10 Mg Tab, 10 MG PO TID, #12 TAB 0 Refills Prov:LEONOR CALDERÓN [facility] 01/16/23 Reported Medications Bupropion Hcl (Bupropion Hcl) 100 Mg Tab, 100 MG PO BID for 30 Days, MG 10/21/18 Information Source: Patient Mode of Arrival: Ambulatory Timing: Hours Duration: Since onset Prehospital treatment: None Quality: Other (pressure) Vomitus: None Stool: Normal Severity: Moderate Pain Location: Epigastric Associated sign and symptoms: Abdominal Pain, Other (chest pains) Past Medical History PAST MEDICAL HISTORY: Denies Surgical History: , Hysterectomy Surgical History (Other): shoulder x 2 [employer] History: Ovarian Cysts, Uterine Fibroids Family History Family History: Reviewed,noncontributory to illness Social History Smoker: Quit Less Than 1 Year Alcohol: Denies ETOH Use Drugs: Denies Drug Use Lives In: Home Constitutional: denies: chills, diaphoresis, fatigue, fever, malaise, sweats, weakness, others EENTM: denies: blurred vision, double vision, ear bleeding, ear discharge, ear drainage, ear pain, ear ringing, eye pain, eye redness, hearing loss, mouth pain, mouth swelling, nasal discharge, nose bleeding, nose congestion, nose pain, photophobia, tearing, throat pain, throat swelling, voice changes, others Respiratory: reports: SOB with excertion; denies: cough, hemoptysis, orthopnea, SOB at rest, shortness of breath, stridor, wheezing, others Cardiovascular: reports: chest pain; denies: dizzy spells, diaphoresis, Dyspnea on exertion, edema, irregular heart beat, left arm pain, lightheadedness, palpitations, PND, syncope, others Gastrointestinal: reports: abdominal pain; denies: abdomen distended, blood streaked bowels, constipated, diarrhea, dysphagia, difficulty swallowing, hematemesis, melena, nausea, poor appetite, poor fluid intake, rectal bleeding, rectal pain, vomiting, others Genitourinary: denies: abnormal vagina bleeding, burning, dyspareunia, dysuria, flank pain, frequency, hematuria, incontinence, pain, , vagina discharge, urgency, others Neurological: denies: dizziness, fainting, headache, left sided numbness, left sided weakness, numbness, paresthesia, pre-existing deficit, right sided numbness, right sided weakness, seizure, speech problems, tingling, tremors, weakness, others Musculoskeletal: denies: back pain, gout, joint pain, joint swelling, muscle pain, muscle stiffness, neck pain, others Integumetry: denies: bruises, change in color, change in hair/nails, dryness, laceration, lesions, lumps, rash, wounds, others Allergic/Immunocompromised: denies: Difficulty Healing, Frequent Infections, Hives, Itching, others Hematologic/Lymphatic: denies: anemia, blood clots, easy bleeding, easy bruising, swollen glands, others Endocrine: denies: excessive hunger, excessive sweating, excessive thirst, excessive urination, flushing, intolerance to cold, intolerance to heat, unexplained weight gain, unexplained weight loss, others Psychiatric: denies: anxiety, bipolar disorder, depression, hopeless, panic disorder, schizophrenia, sleepless, suicidal, others Physical Exam General Appearance: No Apparent Distress HEENT: Other (moist mucous membranes) Neck: Full Range of Motion, Normal Inspection Respiratory: Lungs Clear, No Accessory Muscle Use, No Respiratory Distress, Normal Breath Sounds Cardiovascular: No Edema, No JVD, Regular Rate/Rhythm Breast Exam: Deferred Gastrointestinal: Epigastric, LUQ, RUQ, Soft, Tenderness Genitalia: Deferred Pelvic: Deferred Rectal: Deferred Extremities: Normal inspection, Normal range of motion Neurologic: Alert (oriented x 4), Normal Affect, Normal Mood, Other (ambulatory without difficulty, no gross focal deficit) Cerebellar Function: NOT DONE Reflexes: NOT DONE Skin: Dry, Normal Color, Warm Lymphatic: NOT DONE EKG EKG : Comments sinus, rate 69, normal int, LAD, nl qrs, no st/t changes Was a procedure done? Was a procedure done?: No GI differential Dx Differential Diagnosis: Cholecystitis, Constipation, Diverticular disease, G astritis/PUD, Gastroenteritis, Pancreatitis, UTI, Urolithiasis, Stress Ulcer Other Differential Diagnosis acs mi pe X-Ray, Labs, Meds, VS Vital Signs Date Time Temp Pulse Resp B/P (MAP) Pulse Ox O2 Delivery O2 Flow Rate FiO2 09/05/24 21:24 68 16 135/61 (85) 99 09/05/24 21:21 68 16 135/61 09/05/24 19:38 69 09/05/24 19:17 16 96 Room Air* 0 21 09/05/24 19:00 84 16 128/63 (84) 96 09/05/24 18:45 99.3 82 20 127/85 (99) 96 09/05/24 18:26 69 Lab Test 09/05/24 19:22 09/05/24 19:16 09/05/24 18:30 Range/Units Urine Color Light-yellow Yellow Urine Clarity Clear Clear Urine pH 6.5 5.0-9.0 Urine Specific [place] 1.017 1.001-1.035 Urine Protein Negative Negative Urine Ketones Negative Negative Urine Blood Negative Negative /uL Urine Nitrite Negative Negative Urine Bilirubin Negative Negative Urine Urobilinogen Normal Negative mg/dL Urine Leukocyte Esterase Negative Negative /uL Urine RBC 1 0 - 4 /hpf Urine WBC 4 0 - 5 /hpf Urine Squamous Epithelial Cells Few <5 /hpf Urine Bacteria None seen None Seen /hpf Urine Hyaline Casts Few 0 - 2 /lpf Urine Glucose Normal Normal mg/dL Troponin I High Sensitivity < 3 L < 3 L </=34 ng/L White Blood Count 6.2 4.4-10.8 10^3/uL Red Blood Count 4.54 4.0-5.20 10^6/uL Hemoglobin 13.2 12.2-16.2 g/dL Hematocrit 39.2 36.0-46.0 % Mean Corpuscular Volume 86.3 80.0-100.0 fL Mean Corpuscular Hemoglobin 29.2 28.0-32.0 pg Mean Corpuscular Hemoglobin Concent 33.8 32.0-36.0 g/dL Red Cell Distribution Width 12.3 11.8-14.3 % Platelet Count 227 140-450 10^3/uL Mean Platelet Volume 8.1 6.9-10.8 fL Neutrophils (%) (Auto) 71.7 37.0-80.0 % Lymphocytes (%) (Auto) 22.0 10.0-50.0 % Monocytes (%) (Auto) 4.6 0.0-12.0 % Eosinophils (%) (Auto) 1.3 0.0-7.0 % Basophils (%) (Auto) 0.4 0.0-2.0 % Neutrophils # (Auto) 4.5 1.6-8.6 10 ^3/uL Lymphocytes # (Auto) 1.4 0.4-5.4 10 ^3/uL Monocytes # (Auto) 0.3 0-1.3 10 ^3/uL Eosinophils # (Auto) 0.1 0-0.8 10 ^3/uL Basophils # (Auto) 0 0-0.2 10 ^3/uL Nucleated Red Blood Cells 0.0 % Sodium Level 141 136-145 mmol/L Potassium Level 4.0 3.5-5.1 mmol/L Chloride Level 103 98-107 mmol/L Carbon Dioxide Level 30 20-31 mmol/L Anion Gap 8 5-15 Blood Urea Nitrogen 18 9-23 mg/dL Creatinine 1.04 H 0.550-1.02 mg/dL Glomerular Filtration Rate Calc 64 >90 mL/min BUN/Creatinine Ratio 17.3 10.0-20.0 Serum Glucose 112 H 74-106 mg/dL Calcium Level 11.5 H 8.7-10.4 mg/dL Total Bilirubin 0.3 0.2-1.0 mg/dL Aspartate Amino Transferase (AST) 16 13-40 U/L Alanine Aminotransferase (ALT) 24 7-40 U/L Alkaline Phosphatase 67 46-116 U/L B-Type Natriuretic Peptide 29.92 0-100 pg/mL Total Protein 7.0 5.7-8.2 g/dL Albumin 4.6 3.2-4.8 g/dL Lipase 53 12-53 U/L Current Medications Medications (Trade) Dose Ordered Sig/Hira Route Start Time Stop Time Status Last Admin Belladonna Alkaloids/ Phenobarbital ( Elixir) 10 ml ONCE ONCE PO 09/05/24 18:45 09/05/24 18:46 DC 09/05/24 19:04 Al Hydrox/Mg Hydrox/Simethicone (Maalox Plus) 30 ml ONCE ONCE PO 09/05/24 18:45 09/05/24 18:46 DC 09/05/24 19:03 Lidocaine HCl (Xylocaine 2% Viscous) 10 ml ONCE ONCE PO 09/05/24 18:45 09/05/24 18:46 DC 09/05/24 19:04 Ondansetron HCl (Zofran Po) 4 mg ONCE ONCE PO 09/05/24 18:45 09/05/24 18:46 DC 09/05/24 19:04 Morphine Sulfate 4 mg ONCE ONCE IV 09/05/24 20:30 09/05/24 20:31 DC 09/05/24 21:21 CHEST RADIOGRAPH Indication: CHEST PAIN Technique: Single frontal view of the chest was obtained Comparison: None FINDINGS: Lines and Tubes: None Lungs: Clear Pleura: No effusion. No pneumothorax. Cardiomediastinal contours: Unremarkable Bones: Unremarkable IMPRESSION: 1. Clear lungs. Exam: CT CT AB PEL WO CON-NO ORAL OR IV History: upper abd pain Comparison Study: 08/12/2024 report only TECHNIQUE: Multidetector CT of the abdomen and pelvis without contrast. Axial, coronal and sagittal multiplanar reformats were obtained from the axial data set by the technologist. Radiation Dose Information: CT Dose: CTDI volume is 10.21 mGy. Dose-length product is 535.53 mGy*cm FINDINGS: Bibasilar atelectasis. Partially visualized heart is unremarkable. Liver, spleen, pancreas and adrenal glands are unremarkable. There appears to be pericholecystic edema over the proximal gallbladder. Kidneys, ureters and urinary bladder are unremarkable. Status post hysterectomy. Stomach is unremarkable. Small bowel loops unremarkable. Appendix is unremarkable. Scattered colonic diverticulosis without diverticulitis. Moderate amount of fecal material within the colon. No evidence of aortic aneurysm. No significant lymphadenopathy. No evidence of intraperitoneal free air or free fluid. Soft tissues are unremarkable. No destructive osseous lesions are noted. IMPRESSION: There appears to be mild pericholecystic edema over the proximal gallbladder. Right upper quadrant ultrasound should be considered for further evaluation. Colonic diverticulosis without diverticulitis. X-Ray, Labs, Meds, VS Comment 53-year-old female with no significant past medical history complaining of upper abdominal and chest pain, without relief after taking antacids. Vitals unremarkable Exam remarkable for epigastric and bilateral upper quadrant tenderness to palpation Rhythm Strip independently interpreted by me: Sinus rhythm, rate 69, no ectopy. EKG sinus rhythm, rate 69, normal intervals, left axis deviation, normal QRS, no ST/T changes. Chest x-ray no acute disease CT abdomen and pelvis IMPRESSION: There appears to be mild pericholecystic edema over the proximal gallbladder. Right upper quadrant ultrasound should be considered for further evaluation. Colonic diverticulosis without diverticulitis. RUQ US result pending CBC, comprehensive metabolic panel, lipase, BNP, serial troponins and UA unremarkable for any abnormality of acute significance Patient treated with the following in the ED: GI cocktail and Zofran p.o. with no relief of pain. Morphine 4 mg IV, Zofran 4 mg IV with improvement of pain Zosyn 4.5G IV Plan is to admit the patient for IV antibiotics, pain control and surgical eval. Time of 1ST Reevaluation: 18:44 Reevaluation 1ST: Unchanged Patient Education/Counseling: Diagnosis, Treatment Family Education/Counseling: No Family Present Departure 1 Departure Time of Disposition: 21:47 Impression: Primary Impression: Acute cholecystitis Disposition: 09 ADMITTED INPATIENT Admit to: Med Surg Condition: Fair Critical Care Note Critical Care Time?: No Stability Stability form required: No Heart Score Heart Score: Heart Score Response (Comments) Value History Slightly Suspicious 0 EKG Normal 0 Age 45-64 1 Risk Factors No known risk factors 0 Troponin Normal limit 0 Total 1 I personally scribed for MARLO FLEMING MD ([email or web address]) on 09/05/24 at 18:49. Electronically submitted by Josué Mccarthy ([facility]). I personally scribed for MARLO FLEMING MD ([facility]) on 09/05/24 at 21:25. Electronically submitted by Josué Mccarthy ([facility]). I personally scribed for MARLO FLEMING MD ([email or web address]) on 09/05/24 at 21:26. Electronically submitted by Josué Mccarthy ([facility]). I personally scribed for MARLO FLEMING MD ([facility]) on 09/05/24 at 21:35. Electronically submitted by Josué Mccarthy ([facility]). MARLO FLEMING MD Sep 05, 2024 18:49
[2024-09-05] MEDS: MAALOX PLUS or MAALOX 30 ML PO ONE (19:03)
[2024-09-05 19:04] LABS: Basophils # (auto) 0 10 ^3/uL (0-0.2); Basophils % (auto) 0.4 % (0.0-2.0); Eosinophils # (auto) 0.1 10 ^3/uL (0-0.8); Eosinophils % (auto) 1.3 % (0.0-7.0); Hematocrit 39.2 % (36.0-46.0); Hemoglobin 13.2 g/dL (12.2-16.2); Lymphocytes # (auto) 1.4 10 ^3/uL (0.4-5.4); Mean Corpuscular Hemoglobin 29.2 pg (28.0-32.0); Mean Corpuscular Hgb Conc. 33.8 g/dL (32.0-36.0); Mean Corpuscular Volume 86.3 fL (80.0-100.0); Monocytes # (auto) 0.3 10 ^3/uL (0-1.3); Monocytes % (auto) 4.6 % (0.0-12.0); Neutrophils # (auto) 4.5 10 ^3/uL (1.6-8.6); Neutrophils % (auto) 71.7 % (37.0-80.0); Platelet Count (auto) 227 10^3/uL (140-450); Red Blood Cells 4.54 10^6/uL (4.0-5.20); Red Cell Distribution Width 12.3 % (11.8-14.3); White Blood Cell 6.2 10^3/uL (4.4-10.8)
[2024-09-05] MEDS: LIDOCAINE VISCOUS 2% 15ML UD PO ONE (19:04)
[2024-09-05] MEDS: DONNATAL 5ml ORAL Elix (BELLADONNA ALK-PHENOBARB) PO ONE (19:04)
[2024-09-05] MEDS: ONDANSETRON ODT 4 MG TAB PO ONE (19:04)
[2024-09-05 19:17] VITALS: RESP 16; O2SAT 96
[2024-09-05 19:22] LABS: Alanine Aminotransferase 24 U/L (7-40); Albumin 4.6 g/dL (3.2-4.8); Alkaline Phosphatase 67 U/L (46-116); Anion Gap 8 (5-15); Aspartate Aminotransferase 16 U/L (13-40); BUN/Creatinine Ratio 17.3 (10.0-20.0); Blood Urea Nitrogen 18 mg/dL (9-23); Carbon Dioxide 30 mmol/L (20-31); Chloride 103 mmol/L (98-107); Sodium 141 mmol/L (136-145)
[2024-09-05 19:29] LABS: Bilirubin, Total 0.3 mg/dL (0.2-1.0); Calcium 11.5 mg/dL (8.7-10.4); Glucose 112 mg/dL (74-106); Lipase 53 U/L (12-53)
[2024-09-05 19:57] LABS: Urine Bacteria None Seen /hpf (None Seen)
[2024-09-05 20:07] LABS: Urine Blood Negative /uL (Negative); Urine Clarity Clear (Clear); Urine Color Light-Yellow (Yellow); Urine Hyaline Cast FEW /lpf (0 - 2); Urine Protein, UAD Negative (Negative); Urine Specific Gravity 1.017 (1.001-1.035); Urine Squamous Epithelial Cell FEW /hpf (<5); Urine Urobilinogen Normal (Negative); Urine WBC 4 /hpf (0 - 5); Urine pH 6.5 (5.0-9.0)
--- NOTE | 2024-09-05 21:07 | DVH ---
CHEST RADIOGRAPH Indication: CHEST PAIN Technique: Single frontal view of the chest was obtained Comparison: None FINDINGS: Lines and Tubes: None Lungs: Clear Pleura: No effusion. No pneumothorax. Cardiomediastinal contours: Unremarkable Bones: Unremarkable IMPRESSION: 1. Clear lungs.
[2024-09-05] MEDS: MORPHINE SULFATE 4 MG/ML SYR/VIAL IV ONE (21:21)
[2024-09-05] MEDS: ONDANSETRON HCL 4 MG/2 ML VIAL IV ONE (21:23)
--- NOTE | 2024-09-05 21:23 | DVH ---
Exam: CT CT AB PEL WO CON-NO ORAL OR IV History: upper abd pain Comparison Study: 08/12/2024 report only TECHNIQUE: Multidetector CT of the abdomen and pelvis without contrast. Axial, coronal and sagittal m ultiplanar reformats were obtained from the axial data set by the technologist. Radiation Dose Information: CT Dose: CTDI volume is 10.21 mGy. Dose-length product is 535.53 mGy*cm FINDINGS: Bibasilar atelectasis. Partially visualized heart is unremarkable. Liver, spleen, pancreas and adrenal glands are unremarkable. There appears to be pericholecystic daylin ma over the proximal gallbladder. Kidneys, ureters and urinary bladder are unremarkable. Status post hysterectomy. Stomach is unremarkable. Small bowel loops unremarkable. Appendix is unremarkable. Scattered colonic diverticulosis without diverticulitis. Moderate amount of fecal material within the colon. No evidence of aortic aneurysm. No significant lymphadenopathy. No evidence of intraperitoneal free air or free fluid. Soft tissues are unremarkable. No destructive osseous lesions are noted. IMPRESSION: There appears to be mild pericholecystic edema over the proximal gallbladder. Right upper quadrant ul trasound should be considered for further evaluation. Colonic diverticulosis without diverticulitis.
[2024-09-05] MEDS: PIPERACILLIN-TAZO 4.5GM 100 ML IV ONE (22:01)
[2024-09-05] MEDS ORDERED: ACETAMINOPHEN 325 MG TAB PO PRN (22:45)
[2024-09-05] MEDS ORDERED: DOCUSATE SOD 100 MG CAP PO PRN (22:45)
[2024-09-06] VITALS (9 sets, daily range): BP systolic 98–120; BP diastolic 48–69; PULSE 55–75; RESP 12–20; TEMP 97.5–98.4; O2SAT 96–100
[2024-09-06] MEDS ORDERED: NITROGLYCERIN 0.4 MG SL TAB SL PRN
[2024-09-06] MEDS ORDERED: MORPHINE SULFATE INJ 2 MG/ml SYRG IV PRN
--- NOTE | 2024-09-06 00:10 | DVHHP2 ---
History of Present Illness Reason for Visit: Acute abdominal pain History of Present Illness The patient is a 53-year-old female with past medical history of fibroids and ovarian cyst who presented to [facility] ED with complaint of upper abdominal pain. Patient reports she has been having epigastric pain and midsternal pain described as pressure sensation, radiating to the back, worsens with deep breathing, rating pain 8/10 numeric scale. Patient was seen and evaluated in the ED, laboratory data shows WBC 6.2, platelets 227, sodium 141, potassium 4.0, BUN 18, creatinine 1.04, GFR 64, glucose 112, troponin 3, calcium 11.5, lipase 53, blood pressure 155/61, heart rate 68, temperature 99.3 F, O2 saturation 99% room air. Abdomen/pelvis CT appears to be mild pericholecystic edema over the proximal gallbladder, recommending upper quadrant ultrasound; colonic diverticulosis without diverticulitis. Patient was given IV morphine sulfate 4 mg x 1, please see medication orders section in the computer. On my assessment, patient denied chest pain, no headache, no dizziness, no diaphoresis, no shortness of breath, no diarrhea, no nausea, no vomiting, no fever, no chills. Patient was admitted for further evaluation and medical management. Past Medical History Ovarian Cysts, Uterine Fibroids Past Surgical History , Hysterectomy, Shoulder x 2 Family History Reviewed, noncontributory to the management of this case. Past Social History Patient lives at home, quit smoking less than 1 year, denies alcohol or illicit drugs abuse. Review of Systems Constitutional: No: Fever, Chills, Sweats, Weakness, Malaise, Other Eyes: No: Pain, Vision change, Conjunctivae inflammation, Eyelid inflammation, Other, Redness ENT: No: Ear pain, Ear discharge, Nose pain, Nose discharge, Nose congestion, Mouth pain, Mouth swelling, Throat pain, Throat swelling, Other Respiratory: No: Cough, Dry, Shortness of breath, SOB with excertion, Wheezing, Hemoptysis, Pleuritic Pain, Sputum, Wheezing, Other Cardiovascular: No: Chest Pain, Palpitations, Orthopnea, Paroxysmal Noc. Dyspnea, Edema, Lt Headedness, Other Gastrointestinal: Abdominal Pain (Epigastric area); No: Nausea, Vomiting, Diarrhea, Constipation, Melena, Hematochezia, Other Genitourinary: No Dysuria, No Frequency, No Incontinence, No Hematuria, No Retention, No Other Musculoskeletal: No: other, neck pain, shoulder pain, arm pain, back pain, hand pain, leg pain, foot pain Skin: No: Rash, Lesions, Jaundice, Bruising, Other Neurological: No: Weakness, Numbness, Incoordination, Change in speech, Confusion, Seizures, Other Allergies: Coded Allergies: NO KNOWN ALLERGIES (Unverified , 12/28/20) Medications Current Medications Medications Dose Ordered Sig/Hira Route Start Time Stop Time Status Last Admin Dose Admin Sodium Chloride 10 ml Q8HR IV 09/06/24 06:00 Acetaminophen/ Hydrocodone Bitart 1 tab Q4HP PRN PO 09/05/24 22:45 Ondansetron HCl 4 mg Q4HP PRN IV 09/05/24 22:45 Docusate Sodium 100 mg BIDPRN PRN PO 09/05/24 22:45 Acetaminophen 650 mg Q6HP PRN PO 09/05/24 22:45 Morphine Sulfate 2 mg Q4HPRN PRN IV 09/05/24 22:45 Exam Vital Signs Vital Signs Date Time Temp Pulse Resp B/P (MAP) Pulse Ox O2 Delivery O2 Flow Rate FiO2 09/05/24 22:42 70 16 131/68 09/05/24 21:24 99 09/05/24 19:17 Room Air* 0 21 09/05/24 18:45 99.3 General Appearance: Alert, Oriented X3, Cooperative, No acute distress HEENT: Atraumatic, PERRLA, EOMI, Mucous membr. moist/pink Respiratory: Clear to auscultation, Normal air movement Cardiovascular: Regular rate, Normal S1, Normal S2, No murmurs Abdominal: Normal bowel sounds, Soft, No hepatospenomegaly, No masses, Other (Reports tenderness) Extremities: No clubbing, No cyanosis, No edema, Normal pulses, No tenderness/swelling Skin: No rashes, No breakdown, No significant lesion Neuro: Normal gait, Normal speech, Strength at 5/5 X4 ext, Normal tone, Sensation intact, Cranial nerves 3-12 NL, Reflexes 2+ Psych/Mental Status: Mental status NL, Mood NL Labs/Xrays Labs Test 09/05/24 19:22 09/05/24 19:16 09/05/24 18:30 Range/Units Urine Color Light-yellow Yellow Urine Clarity Clear Clear Urine pH 6.5 5.0-9.0 Urine Specific [place] 1.017 1.001-1.035 Urine Protein Negative Negative Urine Ketones Negative Negative Urine Blood Negative Negative /uL Urine Nitrite Negative Negative Urine Bilirubin Negative Negative Urine Urobilinogen Normal Negative mg/dL Urine Leukocyte Esterase Negative Negative /uL Urine RBC 1 0 - 4 /hpf Urine WBC 4 0 - 5 /hpf Urine Squamous Epithelial Cells Few <5 /hpf Urine Bacteria None seen None Seen /hpf Urine Hyaline Casts Few 0 - 2 /lpf Urine Glucose Normal Normal mg/dL Troponin I High Sensitivity < 3 L </=34 ng/L White Blood Count 6.2 4.4-10.8 10^3/uL Red Blood Count 4.54 4.0-5.20 10^6/uL Hemoglobin 13.2 12.2-16.2 g/dL Hematocrit 39.2 36.0-46.0 % Mean Corpuscular Volume 86.3 80.0-100.0 fL Mean Corpuscular Hemoglobin 29.2 28.0-32.0 pg Mean Corpuscular Hemoglobin Concent 33.8 32.0-36.0 g/dL Red Cell Distribution Width 12.3 11.8-14.3 % Platelet Count 227 140-450 10^3/uL Mean Platelet Volume 8.1 6.9-10.8 fL Neutrophils (%) (Auto) 71.7 37.0-80.0 % Lymphocytes (%) (Auto) 22.0 10.0-50.0 % Monocytes (%) (Auto) 4.6 0.0-12.0 % Eosinophils (%) (Auto) 1.3 0.0-7.0 % Basophils (%) (Auto) 0.4 0.0-2.0 % Neutrophils # (Auto) 4.5 1.6-8.6 10 ^3/uL Lymphocytes # (Auto) 1.4 0.4-5.4 10 ^3/uL Monocytes # (Auto) 0.3 0-1.3 10 ^3/uL Eosinophils # (Auto) 0.1 0-0.8 10 ^3/uL Basophils # (Auto) 0 0-0.2 10 ^3/uL Nucleated Red Blood Cells 0.0 % Sodium Level 141 136-145 mmol/L Potassium Level 4.0 3.5-5.1 mmol/L Chloride Level 103 98-107 mmol/L Carbon Dioxide Level 30 20-31 mmol/L Anion Gap 8 5-15 Blood Urea Nitrogen 18 9-23 mg/dL Creatinine 1.04 H 0.550-1.02 mg/dL Glomerular Filtration Rate Calc 64 >90 mL/min BUN/Creatinine Ratio 17.3 10.0-20.0 Serum Glucose 112 H 74-106 mg/dL Calcium Level 11.5 H 8.7-10.4 mg/dL Total Bilirubin 0.3 0.2-1.0 mg/dL Aspartate Amino Transferase (AST) 16 13-40 U/L Alanine Aminotransferase (ALT) 24 7-40 U/L Alkaline Phosphatase 67 46-116 U/L B-Type Natriuretic Peptide 29.92 0-100 pg/mL Total Protein 7.0 5.7-8.2 g/dL Albumin 4.6 3.2-4.8 g/dL Lipase 53 12-53 U/L PATIENT: NAVIN STEWART DACCT: [id number] UNIT: [id number] : 1970 LOC: ER ROOM / BED: / AGE / SEX: 53 / F ADM STATUS: REG ER SERVICE [id number] ORDERING PHYSICIAN: MARLO FLEMING MD PROCEDURE(s): ABPL - CT AB PEL WO CON-NO ORAL OR IV REASON: upper abd pain ORDER NUMBER(s): [id number], ACCESSION NUMBER(s): [id number] Exam: CT CT AB PEL WO CON-NO ORAL OR IV History: upper abd pain Comparison Study: 08/12/2024 report only TECHNIQUE: Multidetector CT of the abdomen and pelvis without contrast. Axial, coronal and sagittal multiplanar reformats were obtained from the axial data set by the technologist. Radiation Dose Information: CT Dose: CTDI volume is 10.21 mGy. Dose-length product is 535.53 mGy*cm FINDINGS: Bibasilar atelectasis. Partially visualized heart is unremarkable. Liver, spleen, pancreas and adrenal glands are unremarkable. There appears to be pericholecystic edema over the proximal gallbladder. Kidneys, ureters and urinary bladder are unremarkable. Status post hysterectomy. Stomach is unremarkable. Small bowel loops unremarkable. Appendix is unremarkable. Scattered colonic diverticulosis without diverticulitis. Moderate amount of fecal material within the colon. No evidence of aortic aneurysm. No significant lymphadenopathy. No evidence of intraperitoneal free air or free fluid. Soft tissues are unremarkable. No destructive osseous lesions are noted. IMPRESSION: There appears to be mild pericholecystic edema over the proximal gallbladder. Right upper quadrant ultrasound should be considered for further evaluation. Colonic diverticulosis without diverticulitis. ORDERING PHYSICIAN: MARLO FLEMING MD PROCEDURE(s): CXRP - CHEST PORTABLE REASON: CHEST PAIN ORDER NUMBER(s): [id number], ACCESSION NUMBER(s): [id number] CHEST RADIOGRAPH Indication: CHEST PAIN Technique: Single frontal view of the chest was obtained Comparison: None FINDINGS: Lines and Tubes: None Lungs: Clear Pleura: No effusion. No pneumothorax. Cardiomediastinal contours: Unremarkable Bones: Unremarkable IMPRESSION: 1. Clear lungs. Assessment/Plan Assessment/Plan Acute abdominal pain Generalized weakness Plan 1. Admit to med surge unit 2. Breathing treatment 3. Pain control management 4. IV antibiotic management 5. Management of fluids and electrolytes 6. Consultation for hospitalist 7. Diagnostic test abdomen/pelvis CT 8. DVT prophylaxis-on SCDs 9. Repeat labs CBC, CMP in a.m. 10. Continue with current medical management 11. Treatment plan discussed with patient and RN. Patient verbalized understanding. Plan discussed with: Patient, Other (RN) My Orders Orders - TATIANA TAYLOR DNP Procedure Category Date Status Time Allergies ELENA 09/05/24 In Process 22:41 Code Status CODE 09/05/24 Transmitted 22:41 Sodium Chloride Lock PHA 09/06/24 In Process (Saline Lock Ns) 06:00 Oxygen Per Hour RT 09/05/24 Transmitted 22:41 Hydrocodone-Acet PHA 09/05/24 In Process 5/325mg Tab ([place] 22:45 Ondansetron Hcl PHA 09/05/24 In Process (Zofran) 22:45 Docusate Sodium PHA 09/05/24 In Process Capsule (Colace 22:45 Complete Blood Count LAB 09/06/24 Logged 04:00 Comprehensive LAB 09/06/24 Logged Metabolic Panel 04:00 Cardiac DIET 09/06/24 Transmitted Diet-2gna,Lofat,Lochol Breakfast Condition: Serious ELENA 09/05/24 In Process 22:41 Acetaminophen Tablet PHA 09/05/24 In Process (Tylenol Tablet) 22:45 Bedrest With Bathroom ELENA 09/05/24 In Process Privileg 22:41 Morphine Sulfate PHA 09/05/24 In Process Injection 22:45 Sequential ELENA 09/05/24 In Process Compression Device Problem List: (1) Acute abdominal pain (2) Generalized weakness Date of Service: Sep 05, 2024 Billing Provider: TATIANA TAYLOR DNP Common Visit Codes: [id number] INP/OBS CARE (MOD) TATIANA TAYLOR DNP Sep 06, 2024 00:10
[2024-09-06] MEDS: HYDROcodone-ACET 5/325MG TAB PO PRN (00:26)
--- NOTE | 2024-09-06 00:31 | DVH ---
INDICATION: ruq pain r/o cholecystitis TECHNIQUE: Multiple real-time sonographic images were obtained of the right upper quadrant. COMPARISON: None FINDINGS: The liver demonstrates homogeneous echotexture without focal mass lesions. The liver measu res 15 cm. There is no intrahepatic or extrahepatic ductal dilatation. The common duct measures 0.5 cm. The gallbladder is without evidence of stone. Gallbladder sludge is noted. The gallbladder wall rajesh sures 0.3 cm and is within normal limits. The right kidney measures 8.3 cm. The right kidney is normal in contour, size, and shape. The echog enicity is normal. There is no hydronephrosis. The pancreas is not well visualized due to overlying bowel gas. IMPRESSION: No sonographic evidence of acute right upper quadrant abnormalities. Mildly distended gallbladder dem onstrates biliary sludge.
[2024-09-06] MEDS: MORPHINE SULFATE INJ 2 MG/ml SYRG IV PRN (02:28)
[2024-09-06] MEDS: SODIUM CHLOR 0.9% PF (SALINE LOCK) 10ML VIAL/SYR IV SCH (05:27)
[2024-09-06] MEDS: cefTRIAXone 1GM/50ML D5W 50 ML IV SCH (09:23)
[2024-09-06 09:47] LABS: Basophils # (auto) 0 10 ^3/uL (0-0.2); Basophils % (auto) 0.9 % (0.0-2.0); Eosinophils # (auto) 0.1 10 ^3/uL (0-0.8); Eosinophils % (auto) 2.3 % (0.0-7.0); Hematocrit 36.2 % (36.0-46.0); Hemoglobin 12.2 g/dL (12.2-16.2); Lymphocytes # (auto) 1.4 10 ^3/uL (0.4-5.4); Lymphocytes % (auto) 29.4 % (10.0-50.0); Mean Corpuscular Hemoglobin 29.1 pg (28.0-32.0); Mean Corpuscular Hgb Conc. 33.7 g/dL (32.0-36.0); Mean Corpuscular Volume 86.3 fL (80.0-100.0); Monocytes # (auto) 0.4 10 ^3/uL (0-1.3); Monocytes % (auto) 7.4 % (0.0-12.0); Neutrophils # (auto) 2.9 10 ^3/uL (1.6-8.6); Nucleated Red Blood Cells % 0.1 %; Platelet Count (auto) 188 10^3/uL (140-450); Red Blood Cells 4.19 10^6/uL (4.0-5.20); Red Cell Distribution Width 12.5 % (11.8-14.3); White Blood Cell 4.8 10^3/uL (4.4-10.8)
[2024-09-06 10:12] LABS: Alanine Aminotransferase 25 U/L (7-40); Alkaline Phosphatase 59 U/L (46-116); Anion Gap 5 (5-15); Aspartate Aminotransferase 19 U/L (13-40); BUN/Creatinine Ratio 16.3 (10.0-20.0); Bilirubin, Total 0.4 mg/dL (0.2-1.0); Blood Urea Nitrogen 17 mg/dL (9-23); Calcium 9.6 mg/dL (8.7-10.4); Chloride 104 mmol/L (98-107); Glucose 89 mg/dL (74-106); Sodium 140 mmol/L (136-145); Total Protein 6.4 g/dL (5.7-8.2)
[2024-09-06 10:21] LABS: Carbon Dioxide 31 mmol/L (20-31)
--- NOTE | 2024-09-06 16:00 | DVHINCON2 ---
Date of service: Sep 06, 2024 Family History: Cervical cancer G8 SISTER Diabetes mellitus G8 FATHER Allergies: Coded Allergies: NO KNOWN ALLERGIES (Unverified , 12/28/20) Home Meds Active Scripts Lidocaine (Lidocaine Patch 5%) 5 % Pad, 1 APPLIC EX DAILY PRN, #30 PATCH 0 Refills Prov:LEONOR CALDERÓN [facility] 01/16/23 Ibuprofen Micronized (Ibuprofen) 600 Mg Tab, 600 MG PO Q8HPRN PRN, #30 TAB 0 Refills Prov:LEONOR CALDERÓN [facility] 01/16/23 Cyclobenzaprine Hcl (Cyclobenzaprine Hcl) 10 Mg Tab, 10 MG PO TID, #12 TAB 0 Refills Prov:LEONOR CALDERÓN [facility] 01/16/23 Reported Medications Bupropion Hcl (Bupropion Hcl) 100 Mg Tab, 100 MG PO BID for 30 Days, MG 10/21/18 Current Medications Current Medications Medications (Trade) Dose Ordered Sig/Hira Route PRN Reason Start Time Stop Time Status Last Admin Sodium Chloride (Saline Lock Ns) 10 ml Q8HR IV 09/06/24 06:00 09/06/24 14:00 Acetaminophen/ Hydrocodone Bitart ([place] 5/325MG Tab) 1 tab Q4HP PRN PO MODERATE PAIN (4-6 PAIN SCALE) 09/05/24 22:45 09/06/24 12:56 Ondansetron HCl (Zofran) 4 mg Q4HP PRN IV NAUSEA / VOMITING 09/05/24 22:45 Docusate Sodium (Colace Capsule) 100 mg BIDPRN PRN PO FOR CONSTIPATION 09/05/24 22:45 Acetaminophen (Tylenol Tablet) 650 mg Q6HP PRN PO PAIN SCALE 1-3 OR TEMP>100.4 09/05/24 22:45 Morphine Sulfate 2 mg Q4HPRN PRN IV SEVERE PAIN (7-10 PAIN SCALE) 09/05/24 22:45 09/06/24 09:24 Nitroglycerin (Ntrostat Sublingual) 0.4 mg Q5MINP PRN SL FOR CHEST PAIN 09/06/24 00:00 Morphine Sulfate 2 mg Q30M PRN IV FOR CHEST PAIN 09/06/24 00:00 Ceftriaxone Sodium 50 ml @ 100 mls/hr DAILY@09 IV 09/06/24 09:00 09/06/24 09:23 Vital Signs Vital Signs Date Time Temp Pulse Resp B/P (MAP) Pulse Ox O2 Delivery O2 Flow Rate FiO2 09/06/24 13:00 97.5 73 18 98/49 (65) 99 97.5 09/06/24 08:00 Room Air* 0 21 Labs/Diagnostic Data Labs Test 09/06/24 09:28 09/05/24 19:22 09/05/24 19:16 09/05/24 18:30 Range/Units White Blood Count 4.8 4.4-10.8 10^3/uL Red Blood Count 4.19 4.0-5.20 10^6/uL Hemoglobin 12.2 12.2-16.2 g/dL Hematocrit 36.2 36.0-46.0 % Mean Corpuscular Volume 86.3 80.0-100.0 fL Mean Corpuscular Hemoglobin 29.1 28.0-32.0 pg Mean Corpuscular Hemoglobin Concent 33.7 32.0-36.0 g/dL Red Cell Distribution Width 12.5 11.8-14.3 % Platelet Count 188 140-450 10^3/uL Mean Platelet Volume 8.0 6.9-10.8 fL Neutrophils (%) (Auto) 60.0 37.0-80.0 % Lymphocytes (%) (Auto) 29.4 10.0-50.0 % Monocytes (%) (Auto) 7.4 0.0-12.0 % Eosinophils (%) (Auto) 2.3 0.0-7.0 % Basophils (%) (Auto) 0.9 0.0-2.0 % Neutrophils # (Auto) 2.9 1.6-8.6 10 ^3/uL Lymphocytes # (Auto) 1.4 0.4-5.4 10 ^3/uL Monocytes # (Auto) 0.4 0-1.3 10 ^3/uL Eosinophils # (Auto) 0.1 0-0.8 10 ^3/uL Basophils # (Auto) 0 0-0.2 10 ^3/uL Nucleated Red Blood Cells 0.1 % Sodium Level 140 136-145 mmol/L Potassium Level 4.0 3.5-5.1 mmol/L Chloride Level 104 98-107 mmol/L Carbon Dioxide Level 31 20-31 mmol/L Anion Gap 5 5-15 Blood Urea Nitrogen 17 9-23 mg/dL Creatinine 1.04 H 0.550-1.02 mg/dL Glomerular Filtration Rate Calc 64 >90 mL/min BUN/Creatinine Ratio 16.3 10.0-20.0 Serum Glucose 89 74-106 mg/dL Calcium Level 9.6 8.7-10.4 mg/dL Total Bilirubin 0.4 0.2-1.0 mg/dL Aspartate Amino Transferase (AST) 19 13-40 U/L Alanine Aminotransferase (ALT) 25 7-40 U/L Alkaline Phosphatase 59 46-116 U/L Total Protein 6.4 5.7-8.2 g/dL Albumin 4.0 3.2-4.8 g/dL Urine Color Light-yellow Yellow Urine Clarity Clear Clear Urine pH 6.5 5.0-9.0 Urine Specific [place] 1.017 1.001-1.035 Urine Protein Negative Negative Urine Ketones Negative Negative Urine Blood Negative Negative /uL Urine Nitrite Negative Negative Urine Bilirubin Negative Negative Urine Urobilinogen Normal Negative mg/dL Urine Leukocyte Esterase Negative Negative /uL Urine RBC 1 0 - 4 /hpf Urine WBC 4 0 - 5 /hpf Urine Squamous Epithelial Cells Few <5 /hpf Urine Bacteria None seen None Seen /hpf Urine Hyaline Casts Few 0 - 2 /lpf Urine Glucose Normal Normal mg/dL Troponin I High Sensitivity < 3 L </=34 ng/L B-Type Natriuretic Peptide 29.92 0-100 pg/mL Lipase 53 12-53 U/L Assessment [id number] R/O AC CHOLECYSTITIS CONSIDER EMERGENT LAP ANISA BASED ON ONGOING EVAL AND HIDA SCAN Plan discussed with: Patient ELOISA MATAMOROS MD Sep 06, 2024 16:00
--- NOTE | 2024-09-06 17:13 | DVHINCON2 ---
DATE OF CONSULTATION: 09/06/2024 HISTORY OF PRESENT ILLNESS: This patient is 53 years old, coming in with medical history of fibroids, ovarian cyst and with abdominal pain going to her back, it is in the epigastric location. She has some bleeding issues also. No nausea, vomiting. No constipation, diarrhea. No hematemesis, melena. No bleeding per rectum. PAST MEDICAL HISTORY: Uterine fibroids. No hypertension. No diabetes. PAST SURGICAL HISTORY: , hysterectomy and shoulder surgery x2. PHYSICAL EXAMINATION: VITAL SIGNS: Afebrile, stable signs. HEENT: With no evidence of pallor, cyanosis, or jaundice. NECK: Supple, nontender with no thyromegaly, lymphadenopathy. CHEST AND LUNGS: Clear. HEART: Within normal limits. ABDOMEN: Soft, tender in right upper quadrant with minimal rebound. Ultrasound shows mildly distended gallbladder with possible biliary sludge. DIAGNOSTIC DATA: CAT scan is showing pericholecystic edema with a possible gallbladder and laboratory henriquez white cell count is normal. Chemistry: Liver enzymes are normal. CLINICAL IMPRESSION: Rule out acute cholecystitis. PLAN: Will be to consider HIDA scan to determine the need for surgery. MD VALENTÍN Doan/PEPPER TID: [id number] RECEIPT: [id number] cc: Sebastián Morales
[2024-09-06] MEDS: PANTOPRAZOLE 40 MG/10 ML VIAL INJ IV ONE (17:35)
[2024-09-06] MEDS: SUCRALFATE 1 GM/10 ML ORAL SUSP PO SCH (17:35)
[2024-09-06] MEDS: ONDANSETRON HCL 4 MG/2 ML VIAL IV PRN (17:45)
--- NOTE | 2024-09-06 18:04 | DVHPN2 ---
Subjective Epigastric pain Reviewed: Care Plan, H&P, Labs, Medications, Previous Orders, Radiology Changes from previous H/P or p: No Changes Gastrointestinal: Abdominal Pain (Epigastric area) Objective Vitals Vital Signs Date Time Temp Pulse Resp B/P (MAP) Pulse Ox O2 Delivery O2 Flow Rate FiO2 09/06/24 17:45 86 16 101/59 09/06/24 16:40 97.8 96 97.8 09/06/24 08:00 Room Air* 0 21 Intake/Output Intake and Output 09/06/24 07:00 Intake Total 0 ml Output Total 0 ml Balance 0 ml Intake Oral 0 ml Output Urine Total 0 ml General Appearance: Alert, Oriented X3, Cooperative, No acute distress HEENT: Atraumatic Lungs: Clear to auscultation Cardiovascular: Regular rate Abdomen: Other (Tenderness in the epigastric and mostly in the right upper quadrant area) Medications Current Medications Medications Dose Ordered Sig/Hira Route Start Time Stop Time Status Last Admin Dose Admin Sodium Chloride 10 ml Q8HR IV 09/06/24 06:00 09/06/24 14:00 10 ML Acetaminophen/ Hydrocodone Bitart 1 tab Q4HP PRN PO 09/05/24 22:45 09/06/24 12:56 1 TAB Ondansetron HCl 4 mg Q4HP PRN IV 09/05/24 22:45 09/06/24 17:45 4 MG Docusate Sodium 100 mg BIDPRN PRN PO 09/05/24 22:45 Acetaminophen 650 mg Q6HP PRN PO 09/05/24 22:45 Morphine Sulfate 2 mg Q4HPRN PRN IV 09/05/24 22:45 09/06/24 17:45 2 MG Nitroglycerin 0.4 mg Q5MINP PRN SL 09/06/24 00:00 Morphine Sulfate 2 mg Q30M PRN IV 09/06/24 00:00 Ceftriaxone Sodium 50 ml @ 100 mls/hr DAILY@09 IV 09/06/24 09:00 09/06/24 09:23 100 MLS/HR Sucralfate 1 gm QID@0600,1130,1700,2200 PO 09/06/24 17:00 09/06/24 17:35 1 GM Pantoprazole Sodium 40 mg DAILY IV 09/07/24 10:00 Sumatriptan Succinate 50 mg Q2HP PRN PO 09/06/24 16:15 Laboratory Results Laboratory Tests 09/06/24 09:28 Chemistry Test 09/05/24 18:30 09/06/24 09:28 Albumin 4.6 g/dL (3.2-4.8) 4.0 g/dL (3.2-4.8) Calcium Level 11.5 mg/dL (8.7-10.4) H 9.6 mg/dL (8.7-10.4) Total Protein 7.0 g/dL (5.7-8.2) 6.4 g/dL (5.7-8.2) Lipid panel Test 09/05/24 18:30 Lipase 53 U/L (12-53) Cardiac Markers Test 09/05/24 18:30 B-Type Natriuretic Peptide 29.92 pg/mL (0-100) LFT Test 09/05/24 18:30 09/06/24 09:28 Alanine Aminotransferase (ALT) 24 U/L (7-40) 25 U/L (7-40) Alkaline Phosphatase 67 U/L (46-116) 59 U/L (46-116) Aspartate Amino Transferase (AST) 16 U/L (13-40) 19 U/L (13-40) Total Bilirubin 0.3 mg/dL (0.2-1.0) 0.4 mg/dL (0.2-1.0) Urinalysis Test 09/05/24 19:22 Urine Color Light-yellow (Yellow) Urine Clarity Clear (Clear) Urine pH 6.5 (5.0-9.0) Urine Specific [place] 1.017 (1.001-1.035) Urine Protein Negative (Negative) Urine Ketones Negative (Negative) Urine Blood Negative /uL (Negative) Urine Nitrite Negative (Negative) Urine Bilirubin Negative (Negative) Urine Urobilinogen Normal mg/dL (Negative) Urine Leukocyte Esterase Negative /uL (Negative) Urine RBC 1 /hpf (0 - 4) Urine WBC 4 /hpf (0 - 5) Urine Squamous Epithelial Cells Few /hpf (<5) Urine Bacteria None seen /hpf (None Seen) Urine Hyaline Casts Few /lpf (0 - 2) Urine Glucose Normal mg/dL (Normal) Assessment/Plan Assessment/Plan Abdominal pain in the epigastric and the right upper quadrant area Gallbladder sludge/questionable cholecystitis Possible gastritis as well Migraine headaches Plan: Protonix. Carafate. Pain control. Sumatriptan for the headache. HIDA scan. Surgical and GI consultation. Further plan per orders Plan discussed with: Patient, Other (Nursing) My Orders Orders - VALENCIA VELÁSQUEZ MD Procedure Category Date Status Time * Gi Dvh Mechanical Technician CONS 09/06/24 Transmitted 15:32 * Surgical Consult CONS 09/06/24 Transmitted Nm Hida Scan NM 09/06/24 Logged 15:46 Sucralfate Susp PHA 09/06/24 In Process (Carafate Susp) 17:00 Pantoprazole PHA 09/07/24 In Process (Protonix) 10:00 Sumatriptan Succinate PHA 09/06/24 In Process Tablet (Imitrex Ta 16:15 Date of Service: Sep 06, 2024 Billing Provider: VALENCIA VELÁSQUEZ MD Common Visit Codes: [id number] INP/OBS CARE(HIGH) VALENCIA VELÁSQUEZ MD Sep 06, 2024 18:04
--- NOTE | 2024-09-06 19:36 | DVHCONRES ---
Date Seen: Sep 06, 2024 Resident Creating Document: KAMILLE LANDRY RESIDENT Referring Physician Dr. Del Cid History of Present Illness Is a 53-year-old female with a past medical history he can not for fatty liver, fibroid, ovarian cyst anxiety, and remote smoking history presented to the ED with epigastric pain of 1 day's duration. According to the patient earlier in the day yesterday he started having pain in the epigastrium pressure-like sensation rated 6/10 with radiation under both left and right breasts towards and to the back but currently the pain is more localized to the right upper quadrant and to the back. Patient initially told the pain was due to girth and she took 6 antacids without any improvement therefore she went to the to an urgent care and so as per the referred here for further evaluation. Patient denied any history of GERD, heart attack, dyslipidemia, clinic, dizziness, hypertension, chest pain, recent long distance travel, diarrhea, hematemesis. Takes Wellbutrin ( Bupropion) for anxiety and estrogen because she is perimenopausal. In the ED, Her initials vitals were BP: 155/61, HR: 68, temperature 99.3 F, O2 saturation 99% room air. LAB showed WBC 6.2, platelets 227, sodium 141, potassium 4.0, BUN 18, creatinine 1.04, GFR 64, glucose 112, troponin 3, calcium 11.5, lipase 53. Abdomen/pelvis CT mild pericholecystic edema over the proximal gallbladder, recommending upper quadrant ultrasound; colonic diverticulosis without diverticulitis. Patient is currently on IV morphine sulfate 4 mg x 1. GI consulted for further evaluation. Last colonoscopy was about 4 years ago Past Medical History fatty liver, fibroid, anxiety, and remote smoking Past Surgical History Total hysterectomy Left shoulder repair x2 Family History: Cervical cancer G8 SISTER Diabetes mellitus G8 FATHER Family History Noncontributory Allergies: Coded Allergies: NO KNOWN ALLERGIES (Unverified , 12/28/20) Home Meds Active Scripts Lidocaine (Lidocaine Patch 5%) 5 % Pad, 1 APPLIC EX DAILY PRN, #30 PATCH 0 Refills Prov:LEONOR CALDERÓN [employer] 01/16/23 Ibuprofen Micronized (Ibuprofen) 600 Mg Tab, 600 MG PO Q8HPRN PRN, #30 TAB 0 Refills Prov:LEONOR CALDERÓN [employer] 01/16/23 Cyclobenzaprine Hcl (Cyclobenzaprine Hcl) 10 Mg Tab, 10 MG PO TID, #12 TAB 0 Refills Prov:LEONOR CALDERÓN [facility] 01/16/23 Reported Medications Bupropion Hcl (Bupropion Hcl) 100 Mg Tab, 100 MG PO BID for 30 Days, MG 10/21/18 Current Medications Current Medications Medications (Trade) Dose Ordered Sig/Hira Route PRN Reason Start Time Stop Time Status Last Admin Sodium Chloride (Saline Lock Ns) 10 ml Q8HR IV 09/06/24 06:00 09/06/24 14:00 Acetaminophen/ Hydrocodone Bitart ([place] 5/325MG Tab) 1 tab Q4HP PRN PO MODERATE PAIN (4-6 PAIN SCALE) 09/05/24 22:45 09/06/24 12:56 Ondansetron HCl (Zofran) 4 mg Q4HP PRN IV NAUSEA / VOMITING 09/05/24 22:45 09/06/24 17:45 Docusate Sodium (Colace Capsule) 100 mg BIDPRN PRN PO FOR CONSTIPATION 09/05/24 22:45 Acetaminophen (Tylenol Tablet) 650 mg Q6HP PRN PO PAIN SCALE 1-3 OR TEMP>100.4 09/05/24 22:45 Morphine Sulfate 2 mg Q4HPRN PRN IV SEVERE PAIN (7-10 PAIN SCALE) 09/05/24 22:45 09/06/24 17:45 Nitroglycerin (Ntrostat Sublingual) 0.4 mg Q5MINP PRN SL FOR CHEST PAIN 09/06/24 00:00 Morphine Sulfate 2 mg Q30M PRN IV FOR CHEST PAIN 09/06/24 00:00 Ceftriaxone Sodium 50 ml @ 100 mls/hr DAILY@09 IV 09/06/24 09:00 09/06/24 09:23 Sucralfate (Carafate Susp) 1 gm QID@0600,1130,1700,2200 PO 09/06/24 17:00 09/06/24 17:35 Pantoprazole Sodium (Protonix) 40 mg DAILY IV 09/07/24 10:00 Sumatriptan Succinate (Imitrex Tablet) 50 mg Q2HP PRN PO FOR HEADACHE 09/06/24 16:15 Review of Systems Constitutional: Denies fever no chills no feeling of malaise HEENT: Migraine headache; ear pain, ear discharges, conjunctivitis, nasal discharge throat pain Cardiovascular: Denies chest pain, palpitation, orthopnea, PND, or pedal edema Respiratory: Denies shortness of breath, cough cough, sputum production, hemoptysis, GI: Nausea, abdominal pain, vomiting; Denies diarrhea, hematemesis, hematochezia, : Denies frequency, urgency, hematuria, Endocrine: Denies unintentional weight gain or weight loss, feeling of hot flashes, Ronald: Denies easy bruising, bleeding disorders, epistaxis Musculoskeletal: Denies joint pains, muscle aches Psych: No evidence of depression, gunner, suicidal ideation Vital Signs Vital Signs Date Time Temp Pulse Resp B/P (MAP) Pulse Ox O2 Delivery O2 Flow Rate FiO2 09/06/24 18:15 60 15 99/56 09/06/24 16:40 97.8 96 97.8 09/06/24 08:00 Room Air* 0 21 Physical Exam General examination- Not in acute distress HEENT: PEERLA, no acute nasal discharge Chest: S1-S2 audible, rate and rhythm regular, no murmur Lung: CTAB, no wheeze or rhonchi Abdomen: Nondistended, BS+Tenderness, Arcos's positive Musculoskeletal: no acute joint swelling or tenderness Lower extremity: no leg edema Neurological: cranial nerves intact, no acute dysarthria or dysphagia Psychiatry-- Normal mood and affect Skin- tattoos on her feet, otherwise no rashes noted Labs/Diagnostic Data Labs Test 09/06/24 09:28 09/05/24 19:22 09/05/24 19:16 09/05/24 18:30 Range/Units White Blood Count 4.8 4.4-10.8 10^3/uL Red Blood Count 4.19 4.0-5.20 10^6/uL Hemoglobin 12.2 12.2-16.2 g/dL Hematocrit 36.2 36.0-46.0 % Mean Corpuscular Volume 86.3 80.0-100.0 fL Mean Corpuscular Hemoglobin 29.1 28.0-32.0 pg Mean Corpuscular Hemoglobin Concent 33.7 32.0-36.0 g/dL Red Cell Distribution Width 12.5 11.8-14.3 % Platelet Count 188 140-450 10^3/uL Mean Platelet Volume 8.0 6.9-10.8 fL Neutrophils (%) (Auto) 60.0 37.0-80.0 % Lymphocytes (%) (Auto) 29.4 10.0-50.0 % Monocytes (%) (Auto) 7.4 0.0-12.0 % Eosinophils (%) (Auto) 2.3 0.0-7.0 % Basophils (%) (Auto) 0.9 0.0-2.0 % Neutrophils # (Auto) 2.9 1.6-8.6 10 ^3/uL Lymphocytes # (Auto) 1.4 0.4-5.4 10 ^3/uL Monocytes # (Auto) 0.4 0-1.3 10 ^3/uL Eosinophils # (Auto) 0.1 0-0.8 10 ^3/uL Basophils # (Auto) 0 0-0.2 10 ^3/uL Nucleated Red Blood Cells 0.1 % Sodium Level 140 136-145 mmol/L Potassium Level 4.0 3.5-5.1 mmol/L Chloride Level 104 98-107 mmol/L Carbon Dioxide Level 31 20-31 mmol/L Anion Gap 5 5-15 Blood Urea Nitrogen 17 9-23 mg/dL Creatinine 1.04 H 0.550-1.02 mg/dL Glomerular Filtration Rate Calc 64 >90 mL/min BUN/Creatinine Ratio 16.3 10.0-20.0 Serum Glucose 89 74-106 mg/dL Calcium Level 9.6 8.7-10.4 mg/dL Total Bilirubin 0.4 0.2-1.0 mg/dL Aspartate Amino Transferase (AST) 19 13-40 U/L Alanine Aminotransferase (ALT) 25 7-40 U/L Alkaline Phosphatase 59 46-116 U/L Total Protein 6.4 5.7-8.2 g/dL Albumin 4.0 3.2-4.8 g/dL Urine Color Light-yellow Yellow Urine Clarity Clear Clear Urine pH 6.5 5.0-9.0 Urine Specific [place] 1.017 1.001-1.035 Urine Protein Negative Negative Urine Ketones Negative Negative Urine Blood Negative Negative /uL Urine Nitrite Negative Negative Urine Bilirubin Negative Negative Urine Urobilinogen Normal Negative mg/dL Urine Leukocyte Esterase Negative Negative /uL Urine RBC 1 0 - 4 /hpf Urine WBC 4 0 - 5 /hpf Urine Squamous Epithelial Cells Few <5 /hpf Urine Bacteria None seen None Seen /hpf Urine Hyaline Casts Few 0 - 2 /lpf Urine Glucose Normal Normal mg/dL Troponin I High Sensitivity < 3 L </=34 ng/L B-Type Natriuretic Peptide 29.92 0-100 pg/mL Lipase 53 12-53 U/L Assessment Right upper quadrant pain with nausea and vomiting rule out acute cholecystitis --> Arcos's postive --> US gallbladder: Mildly distended gallbladder demonstrates biliary sludge --> HIDA pending --> Surgery following Epigastric pain rule out gastritis --> Protonix 40 mg bid --> Carafate 1gm bid --> recommend EGD when stable Migraine headache --> Continue Tylenol prn Fatty liver --> liver enzyme not normal --> Keep monitoring Anxiety --> Bupropion History of fibroid --> total hysterectomy Premenopausal/perimenopausal --> estrogen pill Ovarian cyst Care discussed for more than 35 minutes Case and plan discussed with Dr. Davis Thank you for allowing us to participate in the care of this patient. Please call if you have any questions or concerns. Plan discussed with: Patient KAMILLE LANDRY RESIDENT Sep 06, 2024 19:36
[2024-09-06] MEDS: SUCRALFATE 1 GM/10 ML ORAL SUSP GT SCH (21:49)
[2024-09-06] MEDS: PANTOPRAZOLE 40 MG/10 ML VIAL INJ IV SCH (22:03)
[2024-09-06] MEDS: metroNIDAZOLE 500MG/100ML 100 ML IV SCH (22:03)
[2024-09-07] VITALS (8 sets, daily range): BP systolic 101–120; BP diastolic 56–72; PULSE 64–77; RESP 16–18; TEMP 97.6–98.6; O2SAT 93–100
[2024-09-07 07:45] LABS: Basophils # (auto) 0 10 ^3/uL (0-0.2); Basophils % (auto) 0.7 % (0.0-2.0); Eosinophils # (auto) 0.1 10 ^3/uL (0-0.8); Eosinophils % (auto) 1.6 % (0.0-7.0); Hematocrit 36.1 % (36.0-46.0); Hemoglobin 12.3 g/dL (12.2-16.2); Lymphocytes # (auto) 1.2 10 ^3/uL (0.4-5.4); Lymphocytes % (auto) 23.7 % (10.0-50.0); Mean Corpuscular Hemoglobin 29.2 pg (28.0-32.0); Mean Corpuscular Volume 85.9 fL (80.0-100.0); Monocytes # (auto) 0.3 10 ^3/uL (0-1.3); Monocytes % (auto) 5.9 % (0.0-12.0); Neutrophils # (auto) 3.5 10 ^3/uL (1.6-8.6); Neutrophils % (auto) 68.1 % (37.0-80.0); Nucleated Red Blood Cells % 0.1 %; Platelet Count (auto) 181 10^3/uL (140-450); Red Cell Distribution Width 12.4 % (11.8-14.3); White Blood Cell 5.2 10^3/uL (4.4-10.8)
[2024-09-07 07:54] LABS: Albumin 3.9 g/dL (3.2-4.8); Alkaline Phosphatase 67 U/L (46-116); Amylase 86 U/L (30-118); Anion Gap 4 (5-15); BUN/Creatinine Ratio 15.5 (10.0-20.0); Bilirubin, Total 0.3 mg/dL (0.2-1.0); Blood Urea Nitrogen 17 mg/dL (9-23); Calcium 9.4 mg/dL (8.7-10.4); Carbon Dioxide 30 mmol/L (20-31); Chloride 105 mmol/L (98-107); Glucose 94 mg/dL (74-106); Potassium 3.9 mmol/L (3.5-5.1); Sodium 139 mmol/L (136-145); Total Protein 6.1 g/dL (5.7-8.2)
[2024-09-07 08:03] LABS: Alanine Aminotransferase 175 U/L (7-40); Aspartate Aminotransferase 120 U/L (13-40); Lipase 60 U/L (12-53)
[2024-09-07] MEDS: SUMAtriptan SUCCINATE 25 MG TAB PO PRN (08:59)
[2024-09-07] MEDS ORDERED: PANTOPRAZOLE 40 MG/10 ML VIAL INJ IV SCH (10:00)
--- NOTE | 2024-09-07 12:03 | DVHPN2 ---
Progress Note Date Seen: Sep 07, 2024 Medical Necessity Reason Pt with a Central, PICC or Fol: No Objective vital signs Vital Sign Date Time Temp Pulse Resp B/P (MAP) Pulse Ox O2 Delivery O2 Flow Rate FiO2 09/07/24 09:00 98.1 77 17 110/64 (79) 95 98.1 09/07/24 08:00 Room Air* 0 21 Total Intake and Output 09/06/24 09/06/24 09/07/24 15:00 23:00 07:00 Intake Total 850 ml 400 ml Balance 850 ml 400 ml medications Current Medications Medications Dose Ordered Sig/Hira Route Start Time Stop Time Status Last Admin Dose Admin Sodium Chloride 10 ml Q8HR IV 09/06/24 06:00 09/07/24 05:32 10 ML Acetaminophen/ Hydrocodone Bitart 1 tab Q4HP PRN PO 09/05/24 22:45 09/06/24 12:56 1 TAB Ondansetron HCl 4 mg Q4HP PRN IV 09/05/24 22:45 09/06/24 17:45 4 MG Docusate Sodium 100 mg BIDPRN PRN PO 09/05/24 22:45 Acetaminophen 650 mg Q6HP PRN PO 09/05/24 22:45 Morphine Sulfate 2 mg Q4HPRN PRN IV 09/05/24 22:45 09/07/24 05:51 2 MG Nitroglycerin 0.4 mg Q5MINP PRN SL 09/06/24 00:00 Morphine Sulfate 2 mg Q30M PRN IV 09/06/24 00:00 Ceftriaxone Sodium 50 ml @ 100 mls/hr DAILY@09 IV 09/06/24 09:00 09/07/24 08:36 100 MLS/HR Sucralfate 1 gm QID@0600,1130,1700,2200 PO 09/06/24 17:00 09/07/24 05:50 1 GM Sumatriptan Succinate 50 mg Q2HP PRN PO 09/06/24 16:15 09/07/24 08:59 50 MG Pantoprazole Sodium 40 mg BID IV 09/06/24 22:00 09/07/24 08:36 40 MG Metronidazole 100 ml @ 100 mls/hr Q8HR IV 09/06/24 22:00 09/07/24 05:50 100 MLS/HR Sucralfate 1 gm BID@0600,2200 GT 09/06/24 22:00 laboratory and microbiology Laboratory Tests 09/07/24 06:56 Test 09/07/24 06:56 Range/Units Serum Glucose 94 74-106 mg/dL Problem List/Assessment/Plan Problem List/Assessment/Plan AFEBRILE VSS ABD SOFT TENDER RUQ LFT ELEVATED AWAIT HIDA SCAN TO DETERMINE THE NEED FOR SURGERY Plan discussed with: Other ELOISA MATAMOROS MD Sep 07, 2024 12:03
--- NOTE | 2024-09-07 12:06 | DVHPN2 ---
Progress Note - Dictate Date Seen: Sep 07, 2024 Medical Necessity Reason Pt with a Central, PICC or Fol: No Subjective No new complaints Abdominal pain is improving Patient is noted to have a slight elevation in her liver enzymes and her lipase went up to 60 This is suggestive of possible gallbladder etiology vital signs Vital Sign Date Time Temp Pulse Resp B/P (MAP) Pulse Ox O2 Delivery O2 Flow Rate FiO2 09/07/24 09:00 98.1 77 17 110/64 (79) 95 98.1 09/07/24 08:00 Room Air* 0 21 Total Intake and Output 09/06/24 09/06/24 09/07/24 15:00 23:00 07:00 Intake Total 850 ml 400 ml Balance 850 ml 400 ml medications Current Medications Medications Dose Ordered Sig/Hira Route Start Time Stop Time Status Last Admin Dose Admin Sodium Chloride 10 ml Q8HR IV 09/06/24 06:00 09/07/24 05:32 10 ML Acetaminophen/ Hydrocodone Bitart 1 tab Q4HP PRN PO 09/05/24 22:45 09/06/24 12:56 1 TAB Ondansetron HCl 4 mg Q4HP PRN IV 09/05/24 22:45 09/06/24 17:45 4 MG Docusate Sodium 100 mg BIDPRN PRN PO 09/05/24 22:45 Acetaminophen 650 mg Q6HP PRN PO 09/05/24 22:45 Morphine Sulfate 2 mg Q4HPRN PRN IV 09/05/24 22:45 09/07/24 05:51 2 MG Nitroglycerin 0.4 mg Q5MINP PRN SL 09/06/24 00:00 Morphine Sulfate 2 mg Q30M PRN IV 09/06/24 00:00 Ceftriaxone Sodium 50 ml @ 100 mls/hr DAILY@09 IV 09/06/24 09:00 09/07/24 08:36 100 MLS/HR Sucralfate 1 gm QID@0600,1130,1700,2200 PO 09/06/24 17:00 09/07/24 05:50 1 GM Sumatriptan Succinate 50 mg Q2HP PRN PO 09/06/24 16:15 09/07/24 08:59 50 MG Pantoprazole Sodium 40 mg BID IV 09/06/24 22:00 09/07/24 08:36 40 MG Metronidazole 100 ml @ 100 mls/hr Q8HR IV 09/06/24 22:00 09/07/24 05:50 100 MLS/HR Sucralfate 1 gm BID@0600,2200 GT 09/06/24 22:00 objective General Appearance: Alert, Oriented X3, No acute distress HEENT: Atraumatic Lungs: Clear to auscultation Cardiovascular: Regular rate Abdomen: Mild epigastric tenderness Extremities without clubbing cyanosis or edema laboratory and microbiology Laboratory Tests 09/07/24 06:56 Test 09/07/24 06:56 Range/Units Serum Glucose 94 74-106 mg/dL RUQ USG IMPRESSION: No sonographic evidence of acute right upper quadrant abnormalities. Mildly distended gallbladder demonstrates biliary sludge. Problems(with codes): (1) Gallstone pancreatitis (2) Gallbladder sludge (3) Generalized weakness (4) Acute abdominal pain (5) Acute cholecystitis Prognosis Plan Continue IV antibiotics IV PPI and sucralfate have been started prophylactically Pain control Surgical follow up HIDA scan in a.m. Possible EGD in a.m. if HIDA scan is negative Repeat labs including liver profile and lipase levels in a.m. Continue clear liquid diet for now Plan discussed with: Other (Viviane Read and Dr Yaa Davis) ANNAMARIA DAVIS MD Sep 07, 2024 12:06
--- NOTE | 2024-09-07 16:08 | DVHPN2 ---
Subjective Better Epigastric pain Reviewed: Care Plan, H&P, Labs, Medications, Previous Orders, Radiology Changes from previous H/P or p: No Changes Gastrointestinal: Abdominal Pain (Epigastric area) Objective Vitals Vital Signs Date Time Temp Pulse Resp B/P (MAP) Pulse Ox O2 Delivery O2 Flow Rate FiO2 09/07/24 13:00 98.0 71 18 117/69 (85) 99 98.0 09/07/24 08:00 Room Air* 0 21 Intake/Output Intake and Output 09/07/24 07:00 Intake Total 1250 ml Balance 1250 ml Intake Oral 1200 ml IV Total 50 ml # Voids 4 General Appearance: Alert, Oriented X3, Cooperative, No acute distress HEENT: Atraumatic Lungs: Clear to auscultation Cardiovascular: Regular rate Abdomen: Other (Tenderness in the epigastric and mostly in the right upper quadrant area) Medications Current Medications Medications Dose Ordered Sig/Hira Route Start Time Stop Time Status Last Admin Dose Admin Sodium Chloride 10 ml Q8HR IV 09/06/24 06:00 09/07/24 05:32 10 ML Acetaminophen/ Hydrocodone Bitart 1 tab Q4HP PRN PO 09/05/24 22:45 09/06/24 12:56 1 TAB Ondansetron HCl 4 mg Q4HP PRN IV 09/05/24 22:45 09/06/24 17:45 4 MG Docusate Sodium 100 mg BIDPRN PRN PO 09/05/24 22:45 Acetaminophen 650 mg Q6HP PRN PO 09/05/24 22:45 Morphine Sulfate 2 mg Q4HPRN PRN IV 09/05/24 22:45 09/07/24 05:51 2 MG Nitroglycerin 0.4 mg Q5MINP PRN SL 09/06/24 00:00 Morphine Sulfate 2 mg Q30M PRN IV 09/06/24 00:00 Ceftriaxone Sodium 50 ml @ 100 mls/hr DAILY@09 IV 09/06/24 09:00 09/07/24 08:36 100 MLS/HR Sucralfate 1 gm QID@0600,1130,1700,2200 PO 09/06/24 17:00 09/07/24 05:50 1 GM Sumatriptan Succinate 50 mg Q2HP PRN PO 09/06/24 16:15 09/07/24 08:59 50 MG Pantoprazole Sodium 40 mg BID IV 09/06/24 22:00 09/07/24 08:36 40 MG Metronidazole 100 ml @ 100 mls/hr Q8HR IV 09/06/24 22:00 09/07/24 05:50 100 MLS/HR Sucralfate 1 gm BID@0600,2200 GT 09/06/24 22:00 Laboratory Results Laboratory Tests 09/07/24 06:56 Chemistry Test 09/07/24 06:56 Albumin 3.9 g/dL (3.2-4.8) Calcium Level 9.4 mg/dL (8.7-10.4) Total Protein 6.1 g/dL (5.7-8.2) Lipid panel Test 09/07/24 06:56 Lipase 60 U/L (12-53) H LFT Test 09/07/24 06:56 Alanine Aminotransferase (ALT) 175 U/L (7-40) H Alkaline Phosphatase 67 U/L (46-116) Aspartate Amino Transferase (AST) 120 U/L (13-40) H Total Bilirubin 0.3 mg/dL (0.2-1.0) Urinalysis Test 09/05/24 19:22 Urine Color Light-yellow (Yellow) Urine Clarity Clear (Clear) Urine pH 6.5 (5.0-9.0) Urine Specific [place] 1.017 (1.001-1.035) Urine Protein Negative (Negative) Urine Ketones Negative (Negative) Urine Blood Negative /uL (Negative) Urine Nitrite Negative (Negative) Urine Bilirubin Negative (Negative) Urine Urobilinogen Normal mg/dL (Negative) Urine Leukocyte Esterase Negative /uL (Negative) Urine RBC 1 /hpf (0 - 4) Urine WBC 4 /hpf (0 - 5) Urine Squamous Epithelial Cells Few /hpf (<5) Urine Bacteria None seen /hpf (None Seen) Urine Hyaline Casts Few /lpf (0 - 2) Urine Glucose Normal mg/dL (Normal) Assessment/Plan Assessment/Plan Abdominal pain in the epigastric and the right upper quadrant area Gallbladder sludge/questionable cholecystitis Possible gastritis as well Migraine headaches Plan: HIDA scan tomorrow. If positive then cholecystectomy. If negative then EGD. Continue Protonix and Carafate Plan discussed with: Patient My Orders Orders - VALENCIA VELÁSQUEZ MD Procedure Category Date Status Time * Surgical Consult CONS 09/06/24 Transmitted 18:24 Date of Service: Sep 07, 2024 Billing Provider: VALENCIA VELÁSQUEZ MD Common Visit Codes: [id number] INP/OBS CARE(HIGH) VALENCIA VELÁSQUEZ MD Sep 07, 2024 16:08
[2024-09-07] MEDS ORDERED: MORPHINE SULFATE INJ 2 MG/ml SYRG IV ONE (20:30)
[2024-09-08] VITALS (10 sets, daily range): BP systolic 103–125; BP diastolic 52–73; PULSE 64–84; RESP 12–18; TEMP 97.6–98.9; O2SAT 95–100
[2024-09-08 07:33] LABS: Albumin 3.7 g/dL (3.2-4.8); Alkaline Phosphatase 69 U/L (46-116); Anion Gap 6 (5-15); BUN/Creatinine Ratio 8.2 (10.0-20.0); Calcium 9.1 mg/dL (8.7-10.4); Carbon Dioxide 28 mmol/L (20-31); Chloride 106 mmol/L (98-107); Glucose 90 mg/dL (74-106); Potassium 4.1 mmol/L (3.5-5.1); Sodium 140 mmol/L (136-145)
[2024-09-08 07:44] LABS: Alanine Aminotransferase 174 U/L (7-40); Aspartate Aminotransferase 78 U/L (13-40); Bilirubin, Total 0.2 mg/dL (0.2-1.0); Blood Urea Nitrogen 8 mg/dL (9-23)
[2024-09-08 09:02] LABS: Lipase 41 U/L (12-53)
--- NOTE | 2024-09-08 10:32 | DVH ---
CLINICAL INFORMATION: 53 years old, Female; GALLBLADDER BILIARY SLUDGE. TECHNIQUE: 5.2 mCi of Choletec were administered intravenously. Images of the upper abdomen were ob tained at 1 minute intervals up to a total time of 60 minutes. COMPARISON: Ultrasound dated 09/06/2024. CT dated 09/05/2024. FINDINGS: There is prompt gallbladder visualization. There is prompt excretion of activity from the biliary ductal system into the small bowel. There is no evidence of acute cholecystitis. IMPRESSION: No scintigraphic evidence of acute cholecystitis. No evidence for common bile duct obstruction.
[2024-09-08] MEDS ORDERED: SODIUM CHLORIDE LOCK 10 ML ONE (13:37)
[2024-09-08] MEDS ORDERED: FLUMAZENIL 0.1 MG/ML INJ 10ML MDV IV ONE (13:37)
[2024-09-08] MEDS ORDERED: NALOXONE HCL 0.4 MG/ML VIAL ONE (13:37)
[2024-09-08] MEDS: LIDOCAINE VISCOUS 2% 15ML UD ONE (13:53)
[2024-09-08] MEDS: MIDAZOLAM HCL 5 MG/ML-1ML VIAL ONE (13:55)
[2024-09-08] MEDS: diphenhdrAMINE HCL 50 MG/1 ML VL ONE (13:55)
[2024-09-08] MEDS: fentaNYL CITRATE 100 MCG/2 ML VL ONE (13:55)
--- NOTE | 2024-09-08 14:00 | ECG ---
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
--- NOTE | 2024-09-08 14:09 | DVHOP2 ---
Operative Report DATE OF OPERATION: 09/08/24 PROCEDURE: Upper Endoscopy with biopsy. PREOPERATIVE INDICATION: The patient is a 53 -year-old female undergoing endoscopy for epigastric pain nausea vomiting POSTOPERATIVE DIAGNOSES: 1. Mild linear antral gastritis 2. Mild duodenitis of the duodenal bulb and postbulbar area 3. Slightly irregular squamocolumnar junction but no significant hiatal hernia or esophagitis PROCEDURE PERFORMED BY: Annamaria Davis GI NURSE: Carissa SCOPE: Olympus videoendoscope. ASA CLASS: 2. PREOPERATIVE MEDICATIONS: Versed3 mg, Fentanyl 75 mcg, Benadryl 50 mg I administered moderate sedation throughout this _7_ minutes procedure. An inde pendent trained observer pushed medications at my direction, and monitored the patient's level of consciousness and physiological status throughout. PROCEDURE IN DETAIL: After obtaining an informed consent, the patient was placed on left lateral decubitus position. The patient was then sedated with the above medications. A bite block was placed between her teeth. The endoscope was then passed through the oropharynx, into the esophagus, and through the stomach and pylorus up to the second and third part of the duodenum. The endoscope was then withdrawn. The 2nd and 3rd part of the duodenal were normal in the duodenal bulb and postbulbar area showed mild duodenitis The pre-pyloric area and antrum and body showed mild linear antral gastritis with some erosion. Fresh or old blood was seen in the stomach On retroflexion the fundus cardia and angularis were normal. Gastric and duodenal biopsies were obtained. Small amount of bile was noted in the The endoscope was then withdrawn into the distal esophagus where she had a slightly irregular squamocolumnar junction with 5 mm extension of columnar epithelium into the distal esophagus. There was no esophagitis and the remaining distal and proximal esophagus and oropharynx were unremarkable The patient tolerated the procedure well without difficulty. COMPLICATIONS : None SPECIMENS: Duodenal biopsies Gastric biopsies DISPOSITION: Transfer back to the floor Stable PLAN: 1. Await for biopsy result 2. Will place pt on Protonix 40 mg p.o. daily 3. Carafate 1 g p.o. twice a day 4. Start with full liquid diet advance to soft mechanical 5. Outpatient follow up with me in 4-6 weeks to review results and discuss further management ANNAMARIA DAVIS MD Sep 08, 2024 14:09
[2024-09-08] MEDS ORDERED: PANT40TA2 PO (16:51)
[2024-09-08] MEDS ORDERED: SUCR1TAB31 OR (16:51)
--- NOTE | 2024-09-08 16:55 | DVHDS2 ---
Discharge Summary Date of Admission Sep 05, 2024 at 23:58 Date of Discharge: Sep 08, 2024 Admitting Diagnosis Abdominal pain Labs/Diagnostic Data: Laboratory Results Test 09/08/24 06:26 09/07/24 06:56 09/05/24 19:22 09/05/24 19:16 Sodium Level 140 mmol/L (136-145) Potassium Level 4.1 mmol/L (3.5-5.1) Chloride Level 106 mmol/L (98-107) Carbon Dioxide Level 28 mmol/L (20-31) Anion Gap 6 (5-15) Blood Urea Nitrogen 8 mg/dL (9-23) Creatinine 0.97 mg/dL (0.550-1.02) Glomerular Filtration Rate Calc 69 mL/min (>90) BUN/Creatinine Ratio 8.2 (10.0-20.0) Serum Glucose 90 mg/dL (74-106) Calcium Level 9.1 mg/dL (8.7-10.4) Total Bilirubin 0.2 mg/dL (0.2-1.0) Aspartate Amino Transferase (AST) 78 U/L (13-40) Alanine Aminotransferase (ALT) 174 U/L (7-40) Alkaline Phosphatase 69 U/L (46-116) Total Protein 6.0 g/dL (5.7-8.2) Albumin 3.7 g/dL (3.2-4.8) Lipase 41 U/L (12-53) White Blood Count 5.2 10^3/uL (4.4-10.8) Red Blood Count 4.20 10^6/uL (4.0-5.20) Hemoglobin 12.3 g/dL (12.2-16.2) Hematocrit 36.1 % (36.0-46.0) Mean Corpuscular Volume 85.9 fL (80.0-100.0) Mean Corpuscular Hemoglobin 29.2 pg (28.0-32.0) Mean Corpuscular Hemoglobin Concent 34.0 g/dL (32.0-36.0) Red Cell Distribution Width 12.4 % (11.8-14.3) Platelet Count 181 10^3/uL (140-450) Mean Platelet Volume 8.1 fL (6.9-10.8) Neutrophils (%) (Auto) 68.1 % (37.0-80.0) Lymphocytes (%) (Auto) 23.7 % (10.0-50.0) Monocytes (%) (Auto) 5.9 % (0.0-12.0) Eosinophils (%) (Auto) 1.6 % (0.0-7.0) Basophils (%) (Auto) 0.7 % (0.0-2.0) Neutrophils # (Auto) 3.5 10 ^3/uL (1.6-8.6) Lymphocytes # (Auto) 1.2 10 ^3/uL (0.4-5.4) Monocytes # (Auto) 0.3 10 ^3/uL (0-1.3) Eosinophils # (Auto) 0.1 10 ^3/uL (0-0.8) Basophils # (Auto) 0 10 ^3/uL (0-0.2) Nucleated Red Blood Cells 0.1 % Amylase Level 86 U/L (30-118) Urine Color Light-yellow (Yellow) Urine Clarity Clear (Clear) Urine pH 6.5 (5.0-9.0) Urine Specific [place] 1.017 (1.001-1.035) Urine Protein Negative (Negative) Urine Ketones Negative (Negative) Urine Blood Negative /uL (Negative) Urine Nitrite Negative (Negative) Urine Bilirubin Negative (Negative) Urine Urobilinogen Normal mg/dL (Negative) Urine Leukocyte Esterase Negative /uL (Negative) Urine RBC 1 /hpf (0 - 4) Urine WBC 4 /hpf (0 - 5) Urine Squamous Epithelial Cells Few /hpf (<5) Urine Bacteria None seen /hpf (None Seen) Urine Hyaline Casts Few /lpf (0 - 2) Urine Glucose Normal mg/dL (Normal) Troponin I High Sensitivity < 3 ng/L (</=34) Test 09/05/24 18:30 B-Type Natriuretic Peptide 29.92 pg/mL (0-100) Other Laboratory Tests 09/08/24 06:26 09/07/24 06:56 Brief Hx & Hospital Course: History of Present Illness The patient is a 53-year-old female with past medical history of fibroids and ovarian cyst who presented to [facility] ED with complaint of upper abdominal pain. Patient reports she has been having epigastric pain and midsternal pain described as pressure sensation, radiating to the back, worsens with deep breathing, rating pain 8/10 numeric scale. Patient was seen and evaluated in the ED, laboratory data shows WBC 6.2, platelets 227, sodium 141, potassium 4.0, BUN 18, creatinine 1.04, GFR 64, glucose 112, troponin 3, calcium 11.5, lipase 53, blood pressure 155/61, heart rate 68, temperature 99.3 F, O2 saturation 99% room air. Abdomen/pelvis CT appears to be mild pericholecystic edema over the proximal gallbladder, recommending upper quadrant ultrasound; colonic diverticulosis without diverticulitis. Patient was given IV morphine sulfate 4 mg x 1, please see medication orders section in the computer. On my assessment, patient denied chest pain, no headache, no dizziness, no diaphoresis, no shortness of breath, no diarrhea, no nausea, no vomiting, no fever, no chills. Patient was admitted for further evaluation and medical management. Course of hospitalization: Patient was given CT scan of the abdomen and pelvis, gallbladder ultrasound, as well as HIDA scan. HIDA scan negative for cholelithiasis, cholecystitis, or CBD dilatation. General surgery consultation was obtained. GI consultation was obtained. Patient underwent EGD today with findings of gastritis and duodenitis. Patient will be discharged home after tolerating oral intake with Carafate 1 g p.o. before meals and at nighttime as well as Protonix 40 mg p.o. twice a day, both medications for 30 days. She will follow up with her PCP, Nida Lockett NP in 1-2 weeks as well as Dr. Renetta Davis in 2-3 weeks to go over biopsy results. Patient was agreeable with discharge plan. All questions answered. Physical examination General: Alert and Oriented x3. No acute distress. Well-nourished. Eyes: EOMI. Anicteric. HENT: Moist mucous membranes. Lungs: Clear to auscultation bilaterally. No accessory muscle use. Cardiovascular: Regular rate and rhythm. No murmur. No JVD. Abdomen: Soft, non-tender and non-distended. No palpable masses. Extremities: No edema. Non-tender. Skin: No rashes or lesions. Warm. Neurologic: No focal neurological deficits. CN II-XII grossly intact, but not individually tested. Psychiatric: Cooperative. Appropriate mood and affect. Total time spent with patient discussing and formulating plan of care: 35 minutes. This medical document was created using an electronic medical record system with [employer] dictation system. Although this document has been carefully reviewed, there may still be some phonetic and typographical errors. These areas are purely typographical due to imperfections of the software programs, and do not reflect any compromise in the patient's medical care. Consults/Reason for consult Gastroenterology: Abdominal pain General surgery: Rule out cholecystitis Operations or Procedures 09/08/2024: EGD Condition at Discharge: Fair Final Diagnosis/Problems List Abdominal pain secondary to gastritis, duodenitis Secondary Diagnosis: Cholecystitis ruled out Cholelithiasis/sludge Obesity Gallbladder pancreatitis ruled out Discharge Disposition: Home Discharge Instruct/Medications Diet: Regular Activity: No Restrictions, As Tolerated Follow Up/Referral: Follow up with PCP, Nida Lockett NP in 1-2 weeks Follow up with Dr. Alayna Davis in 2-3 weeks Medications: Protonix 40 mg p.o. twice a day for 30 days Carafate 1 g tablet a.c. and HS times 30 days 36 Discharge Statement: "Patient was advised to return to the ER or call 911 if any headaches, dizziness, shortness of breath, chest pain, abdominal pain, bleeding, fevers, or worsening of medical condition. Patient was counseled about treatment plan, medications, possible side effects, patientverbalized understanding. All questions were answered to the best of my ability. This discharge took greater then 30 minutes in planning, reviewing documentation, counseling the patient, and discussing with other team members." ASSESSMENT ASSESSMENT Assessment Abdominal pain secondary to gastritis, duodenitis Date of Service: Sep 08, 2024 Billing Provider: VESTA STEELE NP Common Visit Codes: 33343-PFZ/OBS DISCH DAY >30min VESTA STEELE NP Sep 08, 2024 16:55
--- NOTE | 2024-09-08 17:13 | DVHPN2 ---
Progress Note Date Seen: Sep 08, 2024 Medical Necessity Reason Pt with a Central, PICC or Fol: No Objective vital signs Vital Sign Date Time Temp Pulse Resp B/P (MAP) Pulse Ox O2 Delivery O2 Flow Rate FiO2 09/08/24 16:36 98.9 74 16 106/52 (70) 96 98.9 09/08/24 14:06 Room Air 09/08/24 13:51 6.0 09/07/24 20:09 21 Total Intake and Output 09/07/24 09/07/24 09/08/24 15:00 23:00 07:00 Intake Total 600 ml 850 ml Balance 600 ml 850 ml medications Current Medications Medications Dose Ordered Sig/Hira Route Start Time Stop Time Status Last Admin Dose Admin Sodium Chloride 10 ml Q8HR IV 09/06/24 06:00 09/08/24 05:06 10 ML Acetaminophen/ Hydrocodone Bitart 1 tab Q4HP PRN PO 09/05/24 22:45 09/07/24 18:22 1 TAB Ondansetron HCl 4 mg Q4HP PRN IV 09/05/24 22:45 09/06/24 17:45 4 MG Docusate Sodium 100 mg BIDPRN PRN PO 09/05/24 22:45 Acetaminophen 650 mg Q6HP PRN PO 09/05/24 22:45 Morphine Sulfate 2 mg Q4HPRN PRN IV 09/05/24 22:45 09/07/24 22:31 2 MG Nitroglycerin 0.4 mg Q5MINP PRN SL 09/06/24 00:00 Morphine Sulfate 2 mg Q30M PRN IV 09/06/24 00:00 Ceftriaxone Sodium 50 ml @ 100 mls/hr DAILY@09 IV 09/06/24 09:00 09/08/24 10:34 100 MLS/HR Sucralfate 1 gm QID@0600,1130,1700,2200 PO 09/06/24 17:00 09/08/24 11:30 1 GM Sumatriptan Succinate 50 mg Q2HP PRN PO 09/06/24 16:15 09/07/24 21:05 50 MG Pantoprazole Sodium 40 mg BID IV 09/06/24 22:00 09/08/24 10:34 40 MG Metronidazole 100 ml @ 100 mls/hr Q8HR IV 09/06/24 22:00 09/08/24 05:47 100 MLS/HR Sucralfate 1 gm BID@0600,2200 GT 09/06/24 22:00 laboratory and microbiology Laboratory Tests 09/08/24 06:26 09/07/24 06:56 Test 09/08/24 06:26 Range/Units Serum Glucose 90 74-106 mg/dL Problem List/Assessment/Plan Problem List/Assessment/Plan AFEBRILE VSS ABD SOFT TENDER RUQ LESS HIDA SCAN NEG NO INDICATION FOR URGENT SURGERY PLAN PER GI RE EGD CLEARED FOR DISCHARGE Plan discussed with: Patient ELOISA MATAMOROS MD Sep 08, 2024 17:13
--- NOTE | 2024-09-10 09:37 | ECG ---
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
== END 2024-09-08 20:20 | disposition home or self-care (01) | DRG 392 ==
LOC: ER 18:22 → OVERFLOW 23:58 → WEST WING 09-06 03:40
PROVIDERS: ADMIT Nurse Practitioner Family; ATTEND Nurse Practitioner Acute Care
PROC: 0DB68ZX Excision of Stomach, Via Natural or Artificial Opening Endoscopic, Diagnostic (ICD-10-PCS; 2024-09-08)
PROC: 0DB98ZX Excision of Duodenum, Via Natural or Artificial Opening Endoscopic, Diagnostic (ICD-10-PCS; principal; 2024-09-08 13:45)
DX: K29.70 Gastritis, unspecified, without bleeding (principal); K29.80 Duodenitis without bleeding; G43.909 Migraine, unspecified, not intractable, without status migrainosus; K82.8 Other specified diseases of gallbladder; K76.0 Fatty (change of) liver, not elsewhere classified; F41.9 Anxiety disorder, unspecified; K80.20 Calculus of gallbladder without cholecystitis without obstruction; E66.9 Obesity, unspecified; N83.202 Unspecified ovarian cyst, left side; N83.201 Unspecified ovarian cyst, right side; Z90.710 Acquired absence of both cervix and uterus; Z87.891 Personal history of nicotine dependence; Z83.3 Family history of diabetes mellitus; Z80.49 Family history of malignant neoplasm of other genital organs; Z68.30 Body mass index [BMI] 30.0-30.9, adult
CPT/HCPCS: 36415; 43239; 71045; 74176; 76705; 78226; 80053; 81001; 82150; 83690; 83880; 84484; 85025; 93005; G0378; J2250; J2405; J2470; J2543; J3490; Q0162

== ENCOUNTER → 2024-09-05 | Outpatient (CLI) | payer BC ==
[2024-09-05 09:18] LABS: Basophils # (auto) 0 10 ^3/uL (0-0.2); Basophils % (auto) 0.9 % (0.0-2.0); Eosinophils # (auto) 0.1 10 ^3/uL (0-0.8); Eosinophils % (auto) 2.3 % (0.0-7.0); Hematocrit 38.8 % (36.0-46.0); Lymphocytes # (auto) 1.8 10 ^3/uL (0.4-5.4); Lymphocytes % (auto) 33.9 % (10.0-50.0); Mean Corpuscular Hemoglobin 29.1 pg (28.0-32.0); Mean Corpuscular Hgb Conc. 33.6 g/dL (32.0-36.0); Mean Corpuscular Volume 86.7 fL (80.0-100.0); Monocytes # (auto) 0.3 10 ^3/uL (0-1.3); Monocytes % (auto) 6.6 % (0.0-12.0); Neutrophils # (auto) 2.9 10 ^3/uL (1.6-8.6); Neutrophils % (auto) 56.3 % (37.0-80.0); Platelet Count (auto) 210 10^3/uL (140-450); Red Blood Cells 4.48 10^6/uL (4.0-5.20); Red Cell Distribution Width 12.4 % (11.8-14.3); White Blood Cell 5.2 10^3/uL (4.4-10.8)
[2024-09-05 10:15] LABS: Alanine Aminotransferase 19 U/L (7-40); Albumin 4.2 g/dL (3.2-4.8); Alkaline Phosphatase 63 U/L (46-116); Anion Gap 7 (5-15); Aspartate Aminotransferase 19 U/L (13-40); BUN/Creatinine Ratio 16.2 (10.0-20.0); Blood Urea Nitrogen 18 mg/dL (9-23); Calcium 9.7 mg/dL (8.7-10.4); Carbon Dioxide 28 mmol/L (20-31); Chloride 106 mmol/L (98-107); Glucose 93 mg/dL (74-106); Potassium 4.5 mmol/L (3.5-5.1); Sodium 141 mmol/L (136-145); Triglycerides 78 mg/dL (< 150)
[2024-09-05 10:16] LABS: Bilirubin, Total 0.5 mg/dL (0.2-1.0); Total Protein 6.6 g/dL (5.7-8.2)
[2024-09-05 10:24] LABS: Cholesterol 212 mg/dL (< 200); HDL Cholesterol 77 mg/dL (40-59); LDL Cholesterol 130 mg/dL (< 100)
== END | disposition home or self-care (01) ==
LOC: LAB 08:34
PROVIDERS: ATTEND Nurse Practitioner Family
DX: I10 Essential (primary) hypertension (principal); F41.9 Anxiety disorder, unspecified
CPT/HCPCS: 36415; 80053; 80061; 84443; 85025

== ENCOUNTER → 2024-12-29 | Outpatient (CLI) | payer BC ==
[~2024-12-29] MED LIST changes: -IBUP1TAB5 PO; +PANT40TA2 PO; +SUCR1TAB31 OR
[2024-12-29 15:56] LABS: Basophils # (auto) 0 10 ^3/uL (0-0.2); Basophils % (auto) 0.7 % (0.0-2.0); Eosinophils # (auto) 0.1 10 ^3/uL (0-0.8); Eosinophils % (auto) 2.5 % (0.0-7.0); Hematocrit 39.4 % (36.0-46.0); Hemoglobin 13.6 g/dL (12.2-16.2); Lymphocytes # (auto) 1.8 10 ^3/uL (0.4-5.4); Lymphocytes % (auto) 29.9 % (10.0-50.0); Mean Corpuscular Hemoglobin 28.9 pg (28.0-32.0); Mean Corpuscular Hgb Conc. 34.5 g/dL (32.0-36.0); Mean Corpuscular Volume 83.9 fL (80.0-100.0); Monocytes # (auto) 0.3 10 ^3/uL (0-1.3); Monocytes % (auto) 5.5 % (0.0-12.0); Neutrophils # (auto) 3.6 10 ^3/uL (1.6-8.6); Neutrophils % (auto) 61.4 % (37.0-80.0); Nucleated Red Blood Cells % 0.2 %; Platelet Count (auto) 240 10^3/uL (140-450); Red Blood Cells 4.69 10^6/uL (4.0-5.20); Red Cell Distribution Width 12.6 % (11.8-14.3); White Blood Cell 5.9 10^3/uL (4.4-10.8)
[2024-12-29 16:37] LABS: Alanine Aminotransferase 26 U/L (7-40); Alkaline Phosphatase 73 U/L (46-116); Anion Gap 7 (5-15); Aspartate Aminotransferase 22 U/L (13-40); BUN/Creatinine Ratio 17.4 (10.0-20.0); Blood Urea Nitrogen 16 mg/dL (9-23); Calcium 9.6 mg/dL (8.7-10.4); Carbon Dioxide 28 mmol/L (20-31); Chloride 104 mmol/L (98-107); Glucose 90 mg/dL (74-106); Potassium 4.6 mmol/L (3.5-5.1); Sodium 139 mmol/L (136-145); Total Protein 7.6 g/dL (5.7-8.2)
[2024-12-29 16:38] LABS: Albumin 4.9 g/dL (3.2-4.8); Bilirubin, Total 0.3 mg/dL (0.2-1.0); Lipase 55 U/L (12-53)
== END | disposition home or self-care (01) ==
LOC: LAB 15:26
PROVIDERS: ATTEND Internal Medicine Gastroenterology
DX: R94.5 Abnormal results of liver function studies (principal); R10.13 Epigastric pain
CPT/HCPCS: 36415; 80053; 82728; 83690; 85025; 86038; 86803; 87340

== ENCOUNTER 2025-04-20 09:05 | Outpatient (CLI) | payer BC ==
[2025-04-20 09:41] LABS: Urine Protein, UAD Negative (Negative)
[2025-04-20 09:52] LABS: Chloride 104 mmol/L (98-107); Hematocrit 39.5 % (36.0-46.0); Hemoglobin 13.3 g/dL (12.2-16.2); Mean Corpuscular Hemoglobin 27.6 pg (28.0-32.0); Mean Corpuscular Volume 81.9 fL (80.0-100.0); Nucleated Red Blood Cells % 0.1 %; Potassium 4.1 mmol/L (3.5-5.1); Sodium 142 mmol/L (136-145)
[2025-04-20 09:53] LABS: Anion Gap 10 (5-15); Calcium 9.5 mg/dL (8.7-10.4); Carbon Dioxide 28 mmol/L (20-31)
[2025-04-20 09:57] LABS: INR 1.01 (0.9-1.15); Partial Thromboplastin Time 28.1 SEC (24.5-34.5); Prothrombin Time 10.7 sec (9.3-11.8)
[2025-04-20 09:58] LABS: BUN/Creatinine Ratio 12.4 (10.0-20.0); Blood Urea Nitrogen 12 mg/dL (9-23); Glucose 95 mg/dL (74-106)
== END 2025-04-20 17:00 | disposition home or self-care (01) ==
LOC: LAB 09:05
PROVIDERS: ATTEND Anesthesiology Pain Medicine
DX: Z01.812 Encounter for preprocedural laboratory examination (principal); N39.0 Urinary tract infection, site not specified; R79.1 Abnormal coagulation profile
CPT/HCPCS: 36415; 80048; 81001; 85025; 85610; 85730; 87086

== ENCOUNTER 2025-05-07 06:32 | Outpatient (CLI) | payer BC | END 2025-05-07 17:00 | disposition home or self-care (01) | LOC: LAB 06:32 | PROVIDERS: ATTEND Nurse Practitioner Family | DX: N39.0 Urinary tract infection, site not specified (principal) | CPT/HCPCS: 87086 ==

== ENCOUNTER 2025-05-26 08:58 | Outpatient (CLI) | payer BC ==
[~2025-05-26 08:58] MED LIST changes: -BUPIVACAINE HCL 0.25% P/F 10 ML VIAL ONE; -GLYCOPYRROLATE 0.2 MG/ML 1ML VIAL ONE; -KETOROLAC TROMETH 30 MG/ML 1ML VIAL ONE; -LIDOCAINE 1% INJ PF 5ML AMP ONE; -LIDOCAINE W/ EPINEPHRINE 2% INJ 20ML VIAL ONE; -MORPHINE SULF PF 5 MG/10 ML VIAL ONE; -ONDANSETRON HCL 4 MG/2 ML VIAL ONE; -PROPOFOL 10 MG/ML 20 ML IV ONE; -VANCOMYCIN HCL 1000 MG VL ONE; -ceFAZolin 2 GM/D5W50ml 50 ML IV ONE
[2025-05-26 09:29] LABS: Urine Amorphous Crystal FEW /hpf (None Seen); Urine Protein, UAD Negative (Negative)
[2025-05-26 09:38] LABS: Hematocrit 36.2 % (36.0-46.0); Hemoglobin 12.2 g/dL (12.2-16.2); Mean Corpuscular Hemoglobin 28.1 pg (28.0-32.0); Mean Corpuscular Volume 83.6 fL (80.0-100.0); Nucleated Red Blood Cells % 0.0 %
[2025-05-26 09:48] LABS: INR 0.99 (0.9-1.15); Partial Thromboplastin Time 24.8 SEC (24.5-34.5); Prothrombin Time 10.5 sec (9.3-11.8)
[2025-05-26 13:03] LABS: Alanine Aminotransferase 14 U/L (7-40); Alkaline Phosphatase 66 U/L (46-116); Anion Gap 10 (5-15); BUN/Creatinine Ratio 11.7 (10.0-20.0); Bilirubin, Total 0.4 mg/dL (0.2-1.0); Blood Urea Nitrogen 12 mg/dL (9-23); Calcium 9.5 mg/dL (8.7-10.4); Carbon Dioxide 30 mmol/L (20-31); Chloride 105 mmol/L (98-107); Glucose 89 mg/dL (74-106); Potassium 3.6 mmol/L (3.5-5.1); Sodium 145 mmol/L (136-145)
[2025-05-26 13:04] LABS: Albumin 4.4 g/dL (3.2-4.8); Total Protein 7.2 g/dL (5.7-8.2)
== END 2025-05-26 17:00 | disposition home or self-care (01) ==
LOC: LAB 08:58
PROVIDERS: ATTEND Anesthesiology Pain Medicine
DX: Z01.812 Encounter for preprocedural laboratory examination (principal); N39.0 Urinary tract infection, site not specified; R79.1 Abnormal coagulation profile
CPT/HCPCS: 36415; 80053; 81001; 81025; 85025; 85610; 85730; 87086

== ENCOUNTER → 2025-05-26 | Outpatient (CLI) | payer BC ==
[~2025-05-26] MED LIST changes: +BUPIVACAINE HCL 0.25% P/F 10 ML VIAL ONE; +GLYCOPYRROLATE 0.2 MG/ML 1ML VIAL ONE; +KETOROLAC TROMETH 30 MG/ML 1ML VIAL ONE; +LIDOCAINE 1% INJ PF 5ML AMP ONE; +LIDOCAINE W/ EPINEPHRINE 2% INJ 20ML VIAL ONE; +MORPHINE SULF PF 5 MG/10 ML VIAL ONE; +ONDANSETRON HCL 4 MG/2 ML VIAL ONE; +PROPOFOL 10 MG/ML 20 ML IV ONE; +VANCOMYCIN HCL 1000 MG VL ONE; +ceFAZolin 2 GM/D5W50ml 50 ML IV ONE
[2025-05-26 09:27] LABS: Hematocrit 36.2 % (36.0-46.0); Hemoglobin 12.2 g/dL (12.2-16.2); Mean Corpuscular Hemoglobin 28.0 pg (28.0-32.0); Mean Corpuscular Volume 83.3 fL (80.0-100.0); Nucleated Red Blood Cells % 0.1 %
[2025-05-26 09:29] LABS: Urine Amorphous Crystal FEW /hpf (None Seen); Urine Protein, UAD Negative (Negative)
[2025-05-26 09:39] LABS: INR 0.98 (0.9-1.15); Partial Thromboplastin Time 25.0 SEC (24.5-34.5); Prothrombin Time 10.4 sec (9.3-11.8)
[2025-05-26 10:31] LABS: Alanine Aminotransferase 14 U/L (7-40); Alkaline Phosphatase 66 U/L (46-116); Anion Gap 10 (5-15); BUN/Creatinine Ratio 11.7 (10.0-20.0); Blood Urea Nitrogen 12 mg/dL (9-23); Calcium 9.5 mg/dL (8.7-10.4); Carbon Dioxide 30 mmol/L (20-31); Chloride 105 mmol/L (98-107); Glucose 89 mg/dL (74-106); Potassium 3.6 mmol/L (3.5-5.1); Sodium 145 mmol/L (136-145); Total Protein 7.2 g/dL (5.7-8.2)
[2025-05-26 10:32] LABS: Albumin 4.4 g/dL (3.2-4.8); Bilirubin, Total 0.4 mg/dL (0.2-1.0)
== END | disposition home or self-care (01) ==
LOC: LAB 08:52 → EDSTATUS 06-01 10:45
PROVIDERS: ATTEND Orthopaedic Surgery Adult Reconstructive Orthopaedic Surgery
DX: Z01.812 Encounter for preprocedural laboratory examination (principal); L72.3 Sebaceous cyst; M72.0 Palmar fascial fibromatosis [Dupuytren]
CPT/HCPCS: 36415; 80053; 81001; 85025; 85610; 85730; J1100; J1885; J2405; J2704; J3490

== ENCOUNTER 2025-06-02 06:09 | Day surgery (SDC) | payer BC ==
[2025-06-01 15:48] LABS: Urine Protein, UAD Negative (Negative)
[~2025-06-02] VITALS: Ht 160 cm; Wt 61.2 kg
[~2025-06-02 06:09] MED LIST changes: -CYCL-839 PO; -LIDO5PAD12 EX; -PANT40TA2 PO; -SUCR1TAB31 OR
[2025-06-02 08:09] VITALS: PULSE 75; RESP 21; TEMP 97.3; O2SAT 100
[2025-06-02] MEDS ORDERED: fentaNYL CITRATE 100 MCG/2 ML VL IV PRN (08:15)
[2025-06-02] MEDS ORDERED: hydrALAZINE HCL 20 MG/ML VL IV PRN (08:15)
[2025-06-02] MEDS ORDERED: HYDROmorphone HCL 2 MG/ML VL/or syr IV PRN (08:15)
[2025-06-02] MEDS ORDERED: FLUMAZENIL 0.1 MG/ML INJ 10ML MDV IV PRN (08:15)
[2025-06-02] MEDS ORDERED: ONDANSETRON HCL 4 MG/2 ML VIAL IV PRN (08:15)
[2025-06-02] MEDS ORDERED: NALOXONE HCL 0.4 MG/ML VIAL IV PRN (08:15)
[2025-06-02] MEDS: GABAPENTIN 300 MG CAP PO ONE (08:34)
[2025-06-02] MEDS: CELECOXIB 100 MG CAP PO ONE (08:36)
[2025-06-02] MEDS: ACETAMINOPHEN IV 1000 MG/100ML (10MG/ML) IV ONE (08:39)
[2025-06-02 09:15] VITALS: BP 103/51; PULSE 66; RESP 17; O2SAT 98
--- NOTE | 2025-06-02 10:58 | DVH ---
C-ARM FLUOROSCOPY: PROCEDURE: Pain FLUOROSCOPY TIME: 68 sec DAP: 31.82 mgy FINDINGS: Spot intraoperative C arm radiographs demonstrating postsurgical changes involving the SI joints. IMPRESSION: Please refer to surgical report for detailed findings.
--- NOTE | 2025-06-02 10:58 | DVH ---
C-ARM FLUOROSCOPY: PROCEDURE: Pain FLUOROSCOPY TIME: 68 sec DAP: 31.82 mgy FINDINGS: Spot intraoperative C arm radiographs demonstrating postsurgical changes involving the SI joints. IMPRESSION: Please refer to surgical report for detailed findings.
== END 2025-06-02 10:30 | disposition home or self-care (01) ==
LOC: SUR 06:09
PROVIDERS: ATTEND Anesthesiology Pain Medicine
DX: M46.1 Sacroiliitis, not elsewhere classified (principal); M53.3 Sacrococcygeal disorders, not elsewhere classified; M53.2X8 Spinal instabilities, sacral and sacrococcygeal region; M53.88 Other specified dorsopathies, sacral and sacrococcygeal region; G89.29 Other chronic pain; Z87.891 Personal history of nicotine dependence; M47.16 Other spondylosis with myelopathy, lumbar region
CPT/HCPCS: 27279; 76000; 81001; A4215; C1889; J0131

== ENCOUNTER 2025-08-10 07:45 | Day surgery (SDC) | payer BC ==
[2025-08-05 15:23] LABS: Hematocrit 36.3 % (36.0-46.0); Hemoglobin 12.2 g/dL (12.2-16.2); Mean Corpuscular Hemoglobin 28.7 pg (28.0-32.0); Mean Corpuscular Volume 85.0 fL (80.0-100.0); Nucleated Red Blood Cells % 0.0 %
[2025-08-05 15:30] LABS: Urine Protein, UAD Negative (Negative)
[2025-08-05 15:44] LABS: INR 0.97 (0.9-1.15); Partial Thromboplastin Time 26.8 SEC (24.5-34.5); Prothrombin Time 10.3 sec (9.3-11.8)
[2025-08-05 16:11] LABS: Alanine Aminotransferase 17 U/L (7-40); Albumin 4.3 g/dL (3.2-4.8); Alkaline Phosphatase 71 U/L (46-116); Anion Gap 7 (5-15); BUN/Creatinine Ratio 16.5 (10.0-20.0); Blood Urea Nitrogen 17 mg/dL (9-23); Calcium 9.5 mg/dL (8.7-10.4); Chloride 104 mmol/L (98-107); Glucose 90 mg/dL (74-106); Potassium 4.0 mmol/L (3.5-5.1); Sodium 143 mmol/L (136-145); Total Protein 7.0 g/dL (5.7-8.2)
[2025-08-05 16:12] LABS: Bilirubin, Total 0.3 mg/dL (0.2-1.0)
[2025-08-05 16:14] LABS: Carbon Dioxide 32 mmol/L (20-31)
[~2025-08-10] VITALS: Ht 160 cm; Wt 61.2 kg
[2025-08-10] MEDS: ceFAZolin 2 GM/D5W50ml 50 ML IV ONE (08:12)
[2025-08-10] MEDS ORDERED: fentaNYL CITRATE 100 MCG/2 ML VL ONE (08:12)
[2025-08-10] MEDS ORDERED: MIDAZOLAM HCL 2MG/2ML 2ml VIAL (1mg/ml) ONE (08:13)
[2025-08-10] MEDS ORDERED: LIDOCAINE 2% (LOCAL ANESTH.) PF 5ml SDV ONE (08:13)
[2025-08-10] MEDS ORDERED: METOCLOPRAMIDE HCL 5MG/ml INJ 2ml VIAL ONE (08:13)
[2025-08-10] MEDS ORDERED: ONDANSETRON HCL 4 MG/2 ML VIAL ONE (08:13)
[2025-08-10] MEDS ORDERED: PROPOFOL 10 MG/ML 20 ML IV ONE (08:14)
[2025-08-10] MEDS ORDERED: METOCLOPRAMIDE HCL 5MG/ml INJ 2ml VIAL IV PRN (08:15)
[2025-08-10] MEDS ORDERED: KETOROLAC TROMETH 30 MG/ML 1ML VIAL IV ONE (08:15)
[2025-08-10] MEDS ORDERED: ONDANSETRON HCL 4 MG/2 ML VIAL IV PRN (08:15)
[2025-08-10] MEDS ORDERED: HYDROmorphone HCL 2 MG/ML VL/or syr IV PRN (08:15)
[2025-08-10] MEDS: BUPIVACAINE HCL 0.25% P/F 10 ML VIAL ONE (08:26)
[2025-08-10] MEDS: LIDOCAINE 1% HCL (LOCAL ANESTH.) INJ 20ML MDV ONE (08:26)
--- NOTE | 2025-08-10 08:39 | DVHOP2 ---
Operative Report - 2 Report Details Date: 08/10/25 Preop Diagnosis: Right hand duputyren contracture, cyst at middle finger Postop Diagnosis: Right hand duputyren contracture, cyst at middle finger Surgeon: Andrez Park MD Tamping Machine Operator: Brendon POSADA Anesthesiologist: Kyle JAY Anesthesia: General Consent: The patient was informed of the risks and benefits of the procedure. These include but are not limited to complications of anesthesia, postoperative infection, incomplete relief of symptoms, recurrence of symptoms, damage to blood vessels, nerves and tendons, deep venous thrombosis, pulmonary embolism and possible need for repeat surgery in the future. Estimated Blood Loss: 2 cc Name of Procedure Performed Right hand duputyren contracture excision at middle and ring finger, cyst removal at middle finger Procedure Details Procedure Details: The patient has a known history of Dupuytrens disease involving the right palm and middle and ring finger. The patient presented with progressive flexion deformity and functional impairment. Physical examination showed palpable cords and fixed flexion contractures at the MCP and/or PIP joints. Non-surgical options were discussed. Due to the degree of contracture and functional limitation, surgical release was recommended and consented. Procedure in Detail: The patient was brought to the operating suite and placed supine on the operating table. After satisfactory induction of anesthesia, a tourniquet was applied to the upper arm and inflated to 250 mmHg after exsanguination of the arm. The R upper extremity was prepped and draped in the usual sterile fashion. A Olesya-type zigzag incision was made over the volar aspect of the right middle and ring finger and palm, carefully designed to allow good exposure of the diseased fascia while preserving skin vascularity and minimizing scar contracture. Dissection was carried through the dermis and subcutaneous tissues. Careful identification and protection of the digital neurovascular bundles was performed throughout the dissection. The diseased fascial cords were identified and carefully excised in a segmental fashion. Dissection extended both proximal into the palm and distal into the finger to achieve complete release of contracture. The digital nerves and arteries were protected during the entire procedure. Full release of the flexion contracture at the MCP and/or PIP joints was achieved intraoperatively. Hemostasis was obtained using bipolar cautery. Patient noted to have a cyst which was debrided off the flexor tendon of middle finger. The wound was irrigated and closed in layers using 3-0 chromic gut sutures in a simple interrupted fashion. A light compressive dressing and splint were applied to maintain extension and minimize postoperative swelling. Condition Good Disposition Home ANDREZ PARK MD Aug 10, 2025 08:39
[2025-08-10 08:43] VITALS: PULSE 74; RESP 12; TEMP 97.5; O2SAT 91
[2025-08-10] MEDS ORDERED: ACETAMINOPHEN IV 1000 MG/100ML (10MG/ML) IV ONE (08:45)
[2025-08-10 09:00] VITALS: PULSE 70; RESP 12; O2SAT 98
[2025-08-10 09:28] VITALS: BP 98/54; PULSE 71; RESP 14; O2SAT 98
== END 2025-08-10 09:45 | disposition home or self-care (01) ==
LOC: SUR 07:45
PROVIDERS: ATTEND Orthopaedic Surgery Adult Reconstructive Orthopaedic Surgery
DX: M72.0 Palmar fascial fibromatosis [Dupuytren] (principal); L72.3 Sebaceous cyst; F41.9 Anxiety disorder, unspecified; Z79.899 Other long term (current) drug therapy; Z90.710 Acquired absence of both cervix and uterus; Z98.1 Arthrodesis status; Z98.891 History of uterine scar from previous surgery; Z98.51 Tubal ligation status; Z98.890 Other specified postprocedural states; Z88.5 Allergy status to narcotic agent; Z83.3 Family history of diabetes mellitus; Z80.8 Family history of malignant neoplasm of other organs or systems
CPT/HCPCS: 26045; 26160; 36415; 80053; 81001; 85025; 85610; 85730; 88304; J0690; J2003; J2250; J2405; J2704; J2765; J3010; J3490